=== PATIENT | male | born 1935 | race Caucasian/White ===

== ENCOUNTER 2023-12-08 10:00 | Outpatient (CLI) | payer MEDICARE, BC, SELFPAY | END 2023-12-08 10:01 | disposition home or self-care (01) | LOC: AMB 12-11 01:34 | PROVIDERS: PCP Student in an Organized Health Care Education/Training Program; Visit Provider Emergency Medicine | DX: S89.91XA Unspecified injury of right lower leg, initial encounter (principal); W01.0XXA Fall on same level from slipping, tripping and stumbling without subsequent striking against object, initial encounter; Y92.000 Kitchen of unspecified non-institutional (private) residence as the place of occurrence of the external cause | CPT/HCPCS: A0425; A0427 ==

== ENCOUNTER 2023-12-08 10:47 | Inpatient (IN) | payer MEDICARE, BC, SELFPAY ==
[2023-12-08] VITALS (47 sets, daily range): BP systolic 95–162; BP diastolic 35–82; PULSE 68–81; RESP 14–18; TEMP 36.4–37.2; O2SAT 89–99; BMI 23.6
--- NOTE | 2023-12-08 10:57 | XR_ITS ---
Patient: [facility] Facility:?[facility] Patient ID:?[id number] Site Patient ID:?[id number]. Site :?[id number] Study:?XRay-Hip Right 2 VIEWS AND PELVIS-12/08/2023 11:40:05 AM Ordering Physician:CLINTON Final Report: INDICATION: Fall. TECHNIQUE: AP view the pelvis and 2 views of the right hip. COMPARISON: None available. IMPRESSION : There is an acute transcervical right femoral neck fracture with moderate impaction. No dislocation. No evidence of pelvic fracture. Partially visualized left hip intramedullary sarah. 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 The visualized soft tissues are unremarkable. Dictated by Deepa Alvarez MD @ 12/08/2023 12:29:03 PM Signed by:?Deepa Alvarez MD @12/08/2023 12:29:03 PM (Electronic Signature)
--- NOTE | 2023-12-08 10:58 | CT_ITS ---
Patient: CORONA Mathur [facility] Facility:?[facility] Patient ID:?[id number] Site Patient ID:?[id number]. Site :?[id number] Study:?CT-Head WITHOUT-12/08/2023 11:29:59 AM Ordering Physician:CLINTON Final Report: INDICATION: Fall. COMPARISON: 08/02/2021. TECHNIQUE: Noncontrast CT head. FINDINGS: Mild generalized volume loss. 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 No acute intracranial hemorrhage, acute infarct, mass-effect, or fracture. No midline shift. No abnormal ventricular dilatation. Normal calvarium and skull base. Visualized paranasal sinuses and mastoid air cells are clear. Silastic banding left globe. Normal right orbit. IMPRESSION: 1. No acute intracranial abnormality. 2. No interval change Please note that all CT scans at this facility use dose modulation, iterative reconstruction, and/or weight-based dosing when appropriate to reduce radiation dose to as low as reasonably achievable. Dictated by Demetri Segura MD @ 12/08/2023 11:45:31 AM Signed by:?Demetri Segura MD @12/08/2023 11:45:31 AM (Electronic Signature)
--- NOTE | 2023-12-08 10:59 | ED.GENADULT ---
HPI - General Adult General Date Seen: 12/08/23 Chief complaint: Fall/Minor Trauma Stated complaint: fall Time Seen by Provider: 12/08/23 10:52 History of Present Illness HPI narrative: This is a pleasant 88-year-old gentleman brought to the ER this morning by EMS from his home. History is obtained from paramedics initially. They report that he was going to the bathroom last night when he slipped and fell in the bathroom. He landed hard on his right hip and has not been able to get up since then. He has been on the floor for approximately 13 hours. They say that he had a phone in his hand and had dialed 911 but then not push the ?send? button. Apparently his rubber in came to check on him this morning when he did not come to a previously scheduled event. His rev rim found him on the floor of the bathroom and called EMS for him. EMS administered fentanyl 50 mcg IV for severe right hip pain. He is complaining of right hip pain but no other injury. They do not notice any obvious deformity or rotation or foreshortening. EMS reports that he is generally healthy other than high cholesterol. He takes baby aspirin but no other anticoagulant Patient says he just tripped and fell last night was going to the bathroom. He does not recall any palpitations, chest pain, or fainting. He was having a lot of pain in his right hip so was laying on his left hip overnight. He was not able to get himself off the floor. He says he pulled a phone down off the counter by its cord. He knows that his last year and he still able to claim her on his taxes this year. He was planning to file is [place] today. He has no other complaints aside from pain in his right hip and femur . no numbness in his right leg. He does think that he hit his head against the bathtub when he fell, but does not have a headache. he is apologetic about having urine soaked jeans. he was not able to get off the floor to use the toilet. Related Data Home Medications Medication Instructions Recorded Confirmed OTC PROSTATE SUPPLEMENT 12/08/23 aspirin 325 mg tablet 325 mg PO HS 12/08/23 12/08/23 calcium carbonate 500 mg calcium 500 mg PO DAILY 12/08/23 12/08/23 (1,250 mg) tablet cholecalciferol (vitamin D3) 50 50 mcg PO DAILY 12/08/23 12/08/23 mcg (2,000 unit) capsule (Vitamin D3) dorzolamide 22.3 mg-timolol 6.8 1 drp ophthalmic (eye) BID 12/08/23 12/08/23 mg/mL eye drops nitroglycerin 0.4 mg sublingual 0.4 mg sublingual Q5-15M PRN 12/08/23 12/08/23 tablet omega 8-pfi-vmh-fish oil 1,000 mg 1 cap PO DAILY 12/08/23 12/08/23 (120 mg-180 mg) capsule (Fish Oil) simvastatin 20 mg tablet 20 mg PO HS 12/08/23 12/08/23 Allergies Allergy/AdvReac Type Severity Reaction Status Date / Time No Known Drug Allergies Allergy Verified 12/08/23 11:12 Exam Narrative: Exam Narrative: Constitutional: Appears well-developed and well-nourished. Alert. Conversant. Non toxic. Initially his clothes, in particular his pants and left lower sugar, are wet, he was removed from the wet clothes, dried off, and placed under warm blankets for comfort. HENT: Head: Atraumatic. Nose: Nose normal. Mouth/Throat: Oral mucosa is clear and moist. no trismus. Pharynx normal. Tonsils symmetric. No tonsillar enlargement, erythema, or exudate. Eyes: Conjunctivae normal. EOM normal. Pupils equal, round, and reactive to light. No scleral icterus. Neck: Normal range of motion. Neck supple. No tracheal deviation present. Cardiovascular: Normal rate, regular rhythm. No gallop. No friction rub. No murmur heard. Symmetric DP artery pulses Pulmonary/Chest: Effort normal. No stridor. No respiratory distress. No wheezes. No rales. No rhonchi . No tenderness. Abdominal: Soft. Bowel sounds normal. No distension. No mass. No tenderness. No rebound. No guarding. Musculoskeletal: RUE: Normal range of motion. No tenderness. No deformity LUE: Normal range of motion. No tenderness. No deformity RLE: Range of motion in the right hip the knee limited by pain. There is no obvious rotation or deformity of the right hip. Tender over the right hip and right proximal femur. No palpable hematoma. No crepitus. Intact toe wiggling and sensation in the right foot. LLE: Normal range of motion. No edema. No tenderness. No deformity Neurological: Alert and oriented to person, place, and time. Normal strength. CN II-VII intact. No sensory deficit. GCS eye subscore is 4. GCS verbal subscore is 5. GCS motor subscore is 6. Normal coordination Skin: Skin is warm and dry. No rash noted. No pallor. Normal capillary refill. Psychiatric: Normal mood. Normal affect. Const: Vital Signs, click to edit/add: Vital Signs - 24 hr 12/08/23 11:06 12/08/23 11:38 12/08/23 11:40 Temperature 98.1 F Pulse Rate 80 Pulse Rate [Pulse Oximeter] 77 Respiratory Rate 17 Blood Pressure 162/81 H Blood Pressure [Le ft Upper Arm] 144/75 H Pulse Oximetry 93 92 93 Oxygen Delivery Me thod Room Air 12/08/23 11:45 12/08/23 12:00 12/08/23 12:02 Temperature Pulse Rate 75 79 77 Pulse Rate [Pulse Oximeter] Respiratory Rate Blood Pressure 130/82 Blood Pressure [Le ft Upper Arm] Pulse Oximetry 95 93 95 Oxygen Delivery Me thod Course Course ED Course: recheck- d/w Orthopedics, SINDY, Sue. She reviewed the case with the surgeon, Dr. Whiteside. After some debate it was determined that they will take the patient to the OR for operative fixation this afternoon. Anticipate roughly 3:00 p.m., and about 2 hours per Discussed with hospitalist, Dr. Whiteside. She will admit for postoperative management. Subsequently discussed with the patient and his son. They both verbalized understanding and agreement with the plan to go for operative fixation for this femoral neck fracture. Vital Signs Vital signs: Initial Vital Signs Temperature 98.1 F 12/08/23 11:06 Temperature Source Temporal Artery Scan 12/08/23 11:06 Pulse Rate 77 12/08/23 11:06 Respiratory Rate 17 12/08/23 11:06 Blood Pressure 144/75 H 12/08/23 11:06 Blood Pressure Mean 98 12/08/23 11:06 Pulse Oximetry 93 12/08/23 11:06 Oxygen Delivery Method Room Air 12/08/23 11:06 Vital Signs Temperature 98.1 F 12/08/23 11:06 Pulse Rate 77 12/08/23 11:06 Respiratory Rate 17 12/08/23 11:06 Blood Pressure 144/75 H 12/08/23 11:06 Pulse Oximetry 93 12/08/23 11:06 Oxygen Delivery Method Room Air 12/08/23 11:06 Temperature 98.1 F 12/08/23 11:06 Pulse Rate 77 12/08/23 12:02 Respiratory Rate 17 12/08/23 11:06 Blood Pressure 130/82 12/08/23 12:02 Pulse Oximetry 95 12/08/23 12:02 Oxygen Delivery Method Room Air 12/08/23 11:06 Medications Administered Medications: Generic Name Dose Route Start Last Admin Trade Name Freq PRN Reason Stop Dose Admin Hydromorphone HCl 0.5 mg 12/08/23 10:57 12/08/23 14:03 Hydromorphone 0.5 Mg/0.5 Ml Inj IVP 0.5 mg Q1H PRN Administration Pain Lactated Ringer's 1,000 mls @ 125 mls/hr 12/08/23 12:55 12/08/23 14:02 Lactated Ringers 1000 Ml IV 125 mls/hr .Q8H SASHA Administration Discontinued Medications Generic Name Dose Route Start Last Admin Trade Name Freq PRN Reason Stop Dose Admin Sodium Chloride 250 mls @ 250 mls/hr 12/08/23 10:57 12/08/23 14:38 0.9 % Sodium Chloride 250 Ml IV 12/08/23 11:56 Infused .Q1H ONE Infusion Medical Decision Making MDM Narrative Medical decision making narrative: Very pleasant, independent, 88-year-old gentleman brought to the ER today by EMS. He experienced a mechanical trip and fall in the bathroom last night and landed on his right hip. There is no historical evidence to suggest that this was a syncopal event, cardiac arrhythmia, ACS, seizure, or stroke. Screening EKG does show a first-degree AV block and a right bundle-branch block but no clear ischemia. He is not having any chest pain to suggest ACS. He did spend about 13 hours on the floor is bathroom, being unable to get up. This raises concern for possible rhabdomyolysis. There is a small area of redness on the skin of his left hip (he was laying on his left side because it hurts less), but no skin breakdown. No ulcer. Concern is for possible rhabdomyolysis. CK is only mildly elevated at 770. IV fluids initiated here in the ER. He has been urinating overnight up, as evidence by incontinence since he was not able to get up to the toilet. Kidney function is normal. Initial IV saline bolus will be followed by lactated Ringer's maintenance fluid Head CT is negative for any signs of intracranial injury. He is not having any neck pain. He is not anticoagulated No evidence for any chest or rib pain or tenderness. No abdominal tenderness. His only area of pain would be his right hip and thigh. X-rays confirm a right femoral neck fracture. Fortunately he is neurovascularly intact in his right leg. He was having significant pain from this fracture, requiring serial doses of IV Dilaudid for pain control. Additional plan for analgesia was to place a right fascia iliac local anesthetic block. Unfortunately this was delayed due to the arrival of another critically ill patient. The patient was taken to the OR before we could perform the block. Lab Data Labs: Lab Results 12/08/23 Range/Units 11:13 WBC 12.73 H (4.50-11.00) K/uL RBC 5.30 (4.30-5.90) m/uL Hgb 16.9 (13.5-17.5) gm/dL Hct 49.6 (37.0-53.0) % MCV 94 (80-100) fL MCH 32 (26-34) pg MCHC 34 (32-36) gm/dL RDW Coeff of Jani 12.3 (11.5-15.5) % Plt Count 145 (140-440) K/uL Neut % (Auto) 89.3 H (42.0-72.0) % Lymph % (Auto) 3.9 L (20-44) % [place] % (Auto) 6.0 (0.0-11.0) % Eos % (Auto) 0.4 (0.0-7.0) % Baso % (Auto) 0.2 (0.0-3.0) % Neut # (Auto) 11.40 H (1.7-7.0) K/uL Lymph # (Auto) 0.50 L (0.90-2.90) K/uL [place] # (Auto) 0.80 (0.00-0.90) K/UL Eos # (Auto) 0.10 (0.00-0.50) K/uL Baso # (Auto) 0.00 (0.00-0.30) K/uL Abs Immat Gran (auto) 0.00 (0.00-0.30) K/uL Imm/Tot Granulo (auto) 0.2 % Sodium 138 (135-149) mmol/L Potassium 3.8 (3.6-5.1) mmol/L Chloride 105 (96-114) mmol/L Carbon Dioxide 26 (20-32) mmol/L Anion Gap 7 (7-15) mEq/L BUN 19 (7-30) mg/dL Creatinine 0.7 (0.5-1.5) mg/dL Estimated Creat Clear 51.06 Estimated GFR 89 ml/min Glucose 120 H (60-115) mg/dL Lactate 1.4 (0.5-1.9) mmol/L Calcium 10.3 (8.4-10.6) mg/dL Total Creatine Kinase 761 H (54-186) U/L ECG Data Attestation: I personally reviewed and interpreted this ECG as follows: Interpretation: Normal sinus rhythm rate 78. First-degree AV block. DE 312 QRS axis right bundle-branch block. Normal QRS axis. ST segment/T wave: No ST segment elevation or depression. Artifact obscures the baseline. QTc: 471 Discharge Plan Discharge Clinical Impression: Closed fracture of neck of right femur Patient Disposition: Admitted As Observation
[2023-12-08 11:21] LABS: Lactate* 1.4 mmol/L (0.5-1.9)
[2023-12-08] MEDS: HYDROmorphone 0.5 mg/0.5 ml inj IVP ×3 (11:23→14:03)
[2023-12-08 11:24] LABS: Basophils Percent Auto 0.2 % (0.0-3.0); Eosinophils Percent Auto 0.4 % (0.0-7.0); Hematocrit 49.6 % (37.0-53.0); Hemoglobin* 16.9 gm/dL (13.5-17.5); Immature Granulocytes Pct Auto 0.2 %; Lymphocytes Percent Auto 3.9 % (20-44); Mean Corpuscular HGB Conc 34 gm/dL (32-36); Mean Corpuscular Hemoglobin 32 pg (26-34); Mean Corpuscular Volume 94 fL (80-100); Neutrophils Percent Auto 89.3 % (42.0-72.0); Platelet Count* 145 K/uL (140-440); RDW Coefficient of Variation % 12.3 % (11.5-15.5); White Blood Count* 12.73 K/uL (4.50-11.00)
[2023-12-08 11:28] LABS: Slide Review Reflex No
[2023-12-08 11:37] LABS: Chloride* 105 mmol/L (96-114); Potassium* 3.8 mmol/L (3.6-5.1); Sodium* 138 mmol/L (135-149)
[2023-12-08 11:39] LABS: Creatinine* 0.7 mg/dL (0.5-1.5); Est. Creatinine Clearance* 51.06; Estimated Glomerular Filt Rate 89 ml/min
[2023-12-08 11:40] LABS: Anion Gap 7 mEq/L (7-15); Blood Urea Nitrogen* 19 mg/dL (7-30); Calcium* 10.3 mg/dL (8.4-10.6); Carbon Dioxide* 26 mmol/L (20-32); Creatine Kinase* 761 U/L (54-186); Glucose* 120 mg/dL (60-115)
[2023-12-08] MEDS: 0.9 % SODIUM CHLORIDE 250 ml 250 ML IV (11:45)
[2023-12-08] MEDS: LACTATED RINGERS 1000 ML 1,000 ML 125 ML IV ×2 (14:02→17:24)
[2023-12-08 14:36] LABS: Appearance Urine Clear (Clear); Bilirubin Urine Negative (Negative); Blood Urine Trace-intact (Negative); Color Urine Yellow (Yellow); Glucose Urine Trace (Negative); Ketones Urine Trace (Negative); Leukocyte Esterase Urine Negative (Negative); Nitrite Urine Negative (Negative); Protein Urine 2+ (Negative); Urobilinogen Urine 0.2 (0.2-1.0); pH Urine 7.5 (5.0-8.5)
[2023-12-08 14:57] LABS: Bacteria Urine Few; RBC Urine 0-2 (0-2); WBC Urine 0-2 (0-5)
--- NOTE | 2023-12-08 15:14 | PM.ORCN ---
History of Present Illness HPI Time Seen by Provider: 14:40 Date Seen: 12/08/23 Consult date: 12/08/23 Chief complaint: Right hip pain Narrative: Shaan is a pleasant 88-year-old male who sustained a right hip femoral neck fracture sometime last night. He states that injury occurred after he tripped and fell after getting up to go to the bathroom. After falling, developed right hip and leg pain and was unable to ambulate. He was down for approximately 13 hours before help arrived. He was subsequently brought to the emergency department this morning by EMS from his home. X-rays obtained confirmed displaced right hip femoral neck fracture. He denies any other injuries. Currently, pain is adequately controlled. Prior to the injury, patient states that he lived alone at home. His approximately 1 year ago. He does not use any assistive devices for walking but reportedly has a cane and/or walker at home. He has a history of left intertrochanteric femur fracture after ground level fall just over 2 years ago, which was treated with a intramedullary hip screw. He also reports prior history of DVT. PFSH PFSH Social History Smoking Status: Never smoker Do you use any of these nicotine containing products: None How often do you have a drink containing alcohol: never How often do you have six or more drinks on one occasion: Never AUDIT-C Alcohol total score: 0 Non-prescribed substance use: denies use Meds Home Medications and Allergies Home Medications Medication Instructions Recorded Confirmed Type OTC PROSTATE SUPPLEMENT 12/08/23 History aspirin 325 mg tablet 325 mg PO HS 12/08/23 12/08/23 History calcium carbonate 500 mg calcium 500 mg PO DAILY 12/08/23 12/08/23 History (1,250 mg) tablet cholecalciferol (vitamin D3) 50 50 mcg PO DAILY 12/08/23 12/08/23 History mcg (2,000 unit) capsule (Vitamin D3) dorzolamide 22.3 mg-timolol 6.8 1 drp ophthalmic (eye) BID 12/08/23 12/08/23 History mg/mL eye drops nitroglycerin 0.4 mg sublingual 0.4 mg sublingual Q5-15M PRN 12/08/23 12/08/23 History tablet omega 0-bea-hwj-fish oil 1,000 mg 1 cap PO DAILY 12/08/23 12/08/23 History (120 mg-180 mg) capsule (Fish Oil) simvastatin 20 mg tablet 20 mg PO HS 12/08/23 12/08/23 History Allergies Allergy/AdvReac Type Severity Reaction Status Date / Time No Known Drug Allergies Allergy Verified 12/08/23 11:12 Ortho Exam Narrative Exam Narrative: Musculoskeletal: Right leg was playing in a shortened and externally rotated position. Any attempted movement of the right lower extremity reproduce patient's hip pain. Sensation was intact to light touch throughout the dorsal plantar aspects of the foot. EHL, tibialis anterior, gastrocnemius/soleus were intact. Foot was warm and well perfused with intact DP and PT pulses. Const Vital Signs, click to edit/add: Vital Signs - 24 hr 12/08/23 11:06 12/08/23 11:38 12/08/23 11:40 Temperature 98.1 F Pulse Rate 80 Pulse Rate [Pulse Oximeter] 77 Respiratory Rate 17 Blood Pressure 162/81 H Blood Pressure [Left Upper Arm] 144/75 H Pulse Oximetry 93 92 93 Oxygen Delivery Method Room Air 12/08/23 11:45 12/08/23 12:00 12/08/23 12:02 Temperature Pulse Rate 75 79 77 Pulse Rate [Pulse Oximeter] Respiratory Rate Blood Pressure 130/82 Blood Pressure [Left Upper Arm] Pulse Oximetry 95 93 95 Oxygen Delivery Method Common normals: oriented x3 and alert Neuro Common normals: oriented x3 Sensorium/orientation: alert Results Labs Labs: Laboratory Results - last 48 hr 12/08/23 12/08/23 11:13 13:55 WBC 12.73 H RBC 5.30 Hgb 16.9 Hct 49.6 MCV 94 MCH 32 MCHC 34 RDW Coeff of Jani 12.3 Plt Count 145 Neut % (Auto) 89.3 H Lymph % (Auto) 3.9 L [place] % (Auto) 6.0 Eos % (Auto) 0.4 Baso % (Auto) 0.2 Neut # (Auto) 11.40 H Lymph # (Auto) 0.50 L [place] # (Auto) 0.80 Eos # (Auto) 0.10 Baso # (Auto) 0.00 Abs Immat Gran (auto) 0.00 Imm/Tot Granulo (auto) 0.2 Sodium 138 Potassium 3.8 Chloride 105 Carbon Dioxide 26 Anion Gap 7 BUN 19 Creatinine 0.7 Estimated Creat Clear 51.06 Estimated GFR 89 Glucose 120 H Lactate 1.4 Calcium 10.3 Total Creatine Kinase 761 H Urine Color Yellow Urine Appearance Clear Urine pH 7.5 Ur Specific [place] 1.020 Urine Protein 2+ A Urine Glucose (UA) Trace A Urine Ketones Trace A Urine Blood Trace-intact A Urine Nitrite Negative Urine Bilirubin Negative Urine Urobilinogen 0.2 Ur Leukocyte Esterase Negative Urine RBC 0-2 Urine WBC 0-2 Ur Squamous Epith Cells None Urine Bacteria Few A Assessment and Plan Assessment and plan (1) Closed fracture of neck of right femur: Status: Acute (2) History of deep vein thrombosis: Status: Acute Plan Patient has a displaced right hip femoral neck fracture. Risks and benefits of operative treatment and alternatives to surgery were discussed with the patient and his son and daughter. Recommendation was subsequently made for surgical intervention consisting of right hip hemiarthroplasty to allow for early mobilization and advancement of weight-bearing, decreased pain, and to avoid complications associated with prolonged bedrest. Risks of surgery to include, but not limited to, infection, neurovascular injury, hip dislocation, deep vein thrombosis, pulmonary embolism, heart attack, stroke, and even were discussed with patient and his family. All of their questions were answered. After discussion, they were in agreement with plan to proceed with surgery. Patient has been medically optimized and cleared for the planned surgical procedure. He has been NPO since last night. He is to remain NPO in anticipation for surgery this afternoon.
--- NOTE | 2023-12-08 15:37 | P.ORPRC_ITS ---
Procedure Note Date of procedure: 12/08/23 Procedure: PREOPERATIVE DIAGNOSIS: 1. Closed, displaced, right hip femoral neck fracture POSTOPERATIVE DIAGNOSIS: 1. Closed, displaced, right hip femoral neck fracture PROCEDURE: 1. Right hip cemented bipolar hemiarthroplasty SURGEON: Rusty Whiteside MD. VESSEL SCRAPPER HELPER: Leigh Flores P.A.-C. orthodontic assistant was critical for this case to aid in patient positioning, tissue retraction, limb manipulation/positioning, and wound closure. ANESTHESIA: Spinal anesthetic IMPLANTS: DePuy [place] femoral stem size 5 with standard offset; 10 mm stem centralizer; DePuy 28mm +5 femoral head; DePuy bipolar femoral head with 28 mm inner diameter and 51 mm outer diameter FINDINGS: Displaced femoral neck fracture EBL: 150 mL COMPLICATIONS: None evident INDICATIONS: The patient is a pleasant 88-year-old male who sustained a right hip injury after a ground level fall. Upon admission to the emergency department, the patient was found to have a displaced right hip femoral neck fracture. Treatment options were discussed and recommendation was made for surgical intervention consisting of bipolar right hip hemiarthroplasty. Prior to surgery, the risks and benefits of treatment were discussed with patient, all questions answered, and informed consent was obtained. DESCRIPTION OF PROCEDURE: Prior to surgery the operative hip was marked. The patient was brought to the operating room and spinal anesthesia was administered. After induction of anesthesia was undertaken, tranexamic acid and 2g IV Ancef were administered. Patient was then rotated into the left lateral decubitus position. An axillary roll was placed and all bony prominences were well padded. A surgical time-out was performed confirming patient identity, surgical site, and surgical procedure. The right hip and lower extremity were prepped and draped in the appropriate sterile fashion. A posterior lateral incision was made centered over the posterior aspect of the greater trochanter. Incision was carried through subcutaneous tissues. The IT band and gluteus ana fascia were identified. IT band and gluteus ana fascia were then incised in line with the incision and Charnley retractor was placed. Gluteus medius was retracted anteriorly. Piriformis and short external rotators were identified. Piriformis was tagged with a #1 Ethibond stitch and was released off its bony insertion. The short external rotators were also released off the femur, and an L-shaped capsulotomy was performed. These tissues were also tagged with a #1 Ethibond stitch. Once the capsulotomy was completed, a femoral neck osteotomy was then performed approximately 1 cm proximal to the lesser trochanter. The femoral head was then removed with a corkscrew device and all bony fragments were removed from the acetabulum. Femoral head measured 51 mm in diameter. We then turned our attention back to the proximal femur. A [employer] cutter osteotome was used to enter the proximal femur. A canal finder was then used to identify the center of the canal. A lateralizing Reamer was used, and the canal was reamed up to the appropriate size. We then broached sequentially to a size 5 broach, and trialed with the 28 mm +5 inner diameter femoral head and 51 mm outer diameter head. Excellent stability with full range of motion, and good soft tissue tension was confirmed. The hip was then dislocated, and the trial components were removed. The distal cement restrictor was then placed. The canal was copiously irrigated and dried. Cement was then pressurized into the canal. A size 5 standard offset [place] stem was then inserted into the canal in the appropriate anteversion. We removed excess cement and allowed the cement time to cure. Once the cement had cured, we dried the trunnion and impacted the formal 28 mm +5 femoral head and 51 mm bipolar femoral head. The hip was then reduced, and we checked stability 1 more time. With these components in place, we had appropriate soft tissue tension, good leg length, and excellent stability. The hip was then irrigated with copious amounts of normal saline. The piriformis, external rotators were repaired through bone tunnels into the greater trochanter using #2 FiberWire sutures. The IT band was closed with #1 Ethibond [id number] interrupted sutures followed by running #2 Stratafix stitch. Subcutaneous tissues were closed with 2-0 Vicryl inverted interrupted stitches followed by a running 2-0 Stratafix and 4-0 Stratafix stitches. Exofin surgical glue was then applied to the surgical incision followed by a black stressing. A large Saravanan bandage was placed from the foot to the thigh and an abduction pillow was placed between the patient's legs. Patient was then rotated into the supine position and awoken from anesthesia. Patient was then transferred to the recovery room in stable condition. PLAN: 1. Patient will be admitted to the hospitalist service for postoperative medical management. 2. Weight bearing: Weightbearing as tolerated 3. Posterior hip precautions to operative hip. Abduction pillow to remain in place while patient is in bed. 4. Postoperative antibiotics: Ancef x2 doses postoperatively per protocol 5. Pain control: Oral and IV pain medications. 6. PT/OT consults for ambulation assistance/mobility education 7. DVT prophylaxis: Continue mechanical SCDs while in the hospital. -Xarelto 10 mg p.o. daily for 35 days 8. Follow up in Orthopedic Clinic in 1-2 weeks for wound check. -Follow-up with Dr. Whiteside in Orthopedic Clinic in 6 weeks.
[2023-12-08] MEDS: CEFAZOLIN 2 GM INJ IVP (16:12)
[2023-12-08] MEDS: TRANEXAMIC ACID 100 MG/ML INJ 1000 MG IV (16:26)
--- NOTE | 2023-12-08 16:37 | SUR.OPER ---
PATIENT/FAMILY QUESTIONS ANSWERED SATISFACTORILY PREOPERATIVELY. PATIENT BROUGHT TO OR #2 PER CART. Patient positioned supine on OR #2 BED THEN MOVED INTO LEFT LATERAL POSITION FOR THE PROCEDURE BY Tripp. The perioperative team supported arms bilaterally on arm boards. Final approval of positioning by surgeon.
--- NOTE | 2023-12-08 16:45 | XR_ITS ---
Patient: CORONA Mathur [facility] Facility:?[facility] Patient ID:?[id number] Site Patient ID:?[id number]. Site :?[id number] Study:?XRay-Hip Right 2 VIEW POST OP-12/08/2023 7:26:15 PM Ordering Physician:GAVIN Final Report: INDICATION: Postop. TECHNIQUE: AP pelvis and lateral right hip. FINDINGS: New right hip hemiarthroplasty. Components appear well seated. Expected adjacent postop soft tissue air. Left hip ORIF changes. Dictated by Eh Elena MD @ 12/11/2023 8:27:38 AM Signed by:?Eh Elena MD @12/11/2023 8:27:38 AM (Electronic Signature)
--- NOTE | 2023-12-08 18:50 | P.ANES_ITS ---
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
--- NOTE | 2023-12-08 18:50 | W.ANESCHARGE ---
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
--- NOTE | 2023-12-08 19:13 | SUR.PHASEI ---
PRIOR TO KAVYA/LFCN BLOCKS, TIME OUT PREFORMED AT 19:07.
--- NOTE | 2023-12-08 19:28 | W.PM.NB ---
Nerve Block Nerve Block Time Seen by Provider: 19:20 Date Seen: 12/08/23 Type of block requested by surgeon for post-operative analgesia: KAVYA/LFCN Side: right Time out performed: Yes Verification of patient name: Yes Verification of date of : Yes Site marking: site marked Name of person performing procedure: hermilo Continuous monitoring Was continuous monitoring of O2 sat, B/P, phototypesetting equipment monitor, recorded every 15 minutes?: Yes Procedure Checklist: sterile prep and needles Ultrasound guided. Images saved: Yes Medications given in 5ml increments after negative aspiration: Ropivicaine %: 0.5 mL: 25 Needle gauge: 20 Decadron (mg): 10 Precedex (mcg): 25 Patient tolerated procedure well: Yes Block Charges Block Charge (with Pro Fee): Other Periph Nerve Block Use of Ultrasound Machine for Block: Yes- US Guidance/pain block
--- NOTE | 2023-12-08 20:36 | PM.IMHP1 ---
Hospitalist- H&P: HPI History of Present Illness Date Seen: 12/08/23 Chief complaint: Right hip pain Narrative: Shaan Vega is a 88 year old male who presented to ED from home for evaluation of fall. The patient had fall in his apartment yesterday after tripping on his feet. He denied LOC. He was unable to call for help. He was found today by member of his orthodoxy. He had complaints of right hip pain. He was brought to ED where Xray of right femur showed right femoral neck fracture. CT head no acute findings. WBC 12.7, CK 761. Orthopaedic Surgery was consulted and he was found to have Closed, displaced, right hip femoral neck fracture. He underwent Right hip cemented bipolar hemiarthroplasty under spinal anesthesia. EBL 150cc. He currently denies chest pain, sob, nausea, vomiting. Has not eaten yet. Post surgical pain is controlled. He is accompanied by his son and daughter. Code status confirmed with Daughter and patient DNR/DNi. Review of Systems Status of ROS: Reports: 10 or more systems reviewed and unremarkable except as noted in History and below PFSH PFS Surgical History (Updated 12/09/23 @ 10:26 by Dixie Whiteside MD) S/P hip hemiarthroplasty ?Z96.649 - Presence of unspecified artificial hip joint (ICD-10) Social History Smoking Status: Never smoker Do you use any of these nicotine containing products: None How often do you have a drink containing alcohol: never How often do you have six or more drinks on one occasion: Never AUDIT-C Alcohol total score: 0 Non-prescribed substance use: denies use Meds Home Medications and Allergies Home Medications Medication Instructions Recorded Confirmed Type OTC PROSTATE SUPPLEMENT 12/08/23 History aspirin 325 mg tablet 325 mg PO HS 12/08/23 12/08/23 History calcium carbonate 500 mg calcium 500 mg PO DAILY 12/08/23 12/08/23 History (1,250 mg) tablet cholecalciferol (vitamin D3) 50 50 mcg PO DAILY 12/08/23 12/08/23 History mcg (2,000 unit) capsule (Vitamin D3) dorzolamide 22.3 mg-timolol 6.8 1 drp ophthalmic (eye) BID 12/08/23 12/08/23 History mg/mL eye drops nitroglycerin 0.4 mg sublingual 0.4 mg sublingual Q5-15M PRN 12/08/23 12/08/23 History tablet omega 9-knt-loq-fish oil 1,000 mg 1 cap PO DAILY 12/08/23 12/08/23 History (120 mg-180 mg) capsule (Fish Oil) simvastatin 20 mg tablet 20 mg PO HS 12/08/23 12/08/23 History Allergies Allergy/AdvReac Type Severity Reaction Status Date / Time No Known Drug Allergies Allergy Verified 12/08/23 11:12 Exam Narrative: Exam Narrative: Gen: no acute dist ress HEENT: NCAT E KELSEY mmm Neck: Supp le CV: RRR normal s1 s2 Lungs: CTAB Abd: Soft,nt, nd N euro: Alert, orien rosa to month not y ear,wiggle toes Ps ych: appropriate a ffect MSK: age candace ropriate muscle ma ss Skin; Warm, dry no rash on face Const: Vital Signs, click to edit/add: Vital Signs - 24 hr 12/08/23 11:06 12/08/23 11:38 12/08/23 11:40 Temperature 98.1 F Pulse Rate 80 Pulse Rate [Pulse Oximeter] 77 Respiratory Rate 17 Blood Pressure 162/81 H Blood Pressure [Le ft Upper Arm] 144/75 H Pulse Oximetry 93 92 93 Oxygen Delivery Me thod Room Air Oxygen Flow Rate 12/08/23 11:45 12/08/23 12:00 12/08/23 12:02 Temperature Pulse Rate 75 79 77 Pulse Rate [Pulse Oximeter] Respiratory Rate Blood Pressure 130/82 Blood Pressure [Le ft Upper Arm] Pulse Oximetry 95 93 95 Oxygen Delivery Me thod Oxygen Flow Rate 12/08/23 12:03 12/08/23 12:15 12/08/23 12:30 Temperature Pulse Rate 78 77 75 Pulse Rate [Pulse Oximeter] Respiratory Rate Blood Pressure Blood Pressure [Le ft Upper Arm] Pulse Oximetry 95 91 91 Oxygen Delivery Me thod Oxygen Flow Rate 12/08/23 12:32 12/08/23 12:45 12/08/23 13:00 Temperature Pulse Rate 76 77 78 Pulse Rate [Pulse Oximeter] Respiratory Rate Blood Pressure 126/63 Blood Pressure [Le ft Upper Arm] Pulse Oximetry 93 94 94 Oxygen Delivery Me thod Oxygen Flow Rate 12/08/23 13:02 12/08/23 13:15 12/08/23 13:30 Temperature Pulse Rate 79 77 77 Pulse Rate [Pulse Oximeter] Respiratory Rate Blood Pressure 137/75 Blood Pressure [Le ft Upper Arm] Pulse Oximetry 92 93 93 Oxygen Delivery Me thod Oxygen Flow Rate 12/08/23 13:32 12/08/23 13:45 12/08/23 14:00 Temperature Pulse Rate 77 78 78 Pulse Rate [Pulse Oximeter] Respiratory Rate Blood Pressure 138/63 Blood Pressure [Le ft Upper Arm] Pulse Oximetry 92 94 93 Oxygen Delivery Me thod Oxygen Flow Rate 12/08/23 14:02 12/08/23 14:15 12/08/23 14:30 Temperature Pulse Rate 79 77 77 Pulse Rate [Pulse Oximeter] Respiratory Rate Blood Pressure 127/65 Blood Pressure [Le ft Upper Arm] Pulse Oximetry 95 93 95 Oxygen Delivery Me thod Oxygen Flow Rate 12/08/23 14:32 12/08/23 14:45 12/08/23 15:00 Temperature Pulse Rate 79 80 79 Pulse Rate [Pulse Oximeter] Respiratory Rate Blood Pressure 131/35 L Blood Pressure [Le ft Upper Arm] Pulse Oximetry 95 96 92 Oxygen Delivery Me thod Oxygen Flow Rate 12/08/23 15:03 12/08/23 15:15 12/08/23 15:30 Temperature Pulse Rate 80 79 76 Pulse Rate [Pulse Oximeter] Respiratory Rate Blood Pressure 136/74 Blood Pressure [Le ft Upper Arm] Pulse Oximetry 92 92 91 Oxygen Delivery Me thod Oxygen Flow Rate 12/08/23 15:32 12/08/23 15:45 12/08/23 18:43 Temperature 98.9 F Pulse Rate 75 80 79 Pulse Rate [Pulse Oximeter] Respiratory Rate 16 Blood Pressure 131/53 L 127/61 Blood Pressure [Le ft Upper Arm] Pulse Oximetry 90 92 91 Oxygen Delivery Me thod Room Air Oxygen Flow Rate 12/08/23 18:50 12/08/23 18:55 12/08/23 19:00 Temperature 98.7 F Pulse Rate 77 76 78 Pulse Rate [Pulse Oximeter] Respiratory Rate 14 14 16 Blood Pressure 121/62 126/71 128/75 Blood Pressure [Le ft Upper Arm] Pulse Oximetry 96 98 99 Oxygen Delivery Me thod OxyMask OxyMask OxyMask Oxygen Flow Rate 10 10 10 12/08/23 19:05 12/08/23 19:10 12/08/23 19:15 Temperature 98.6 F Pulse Rate 80 81 78 Pulse Rate [Pulse Oximeter] Respiratory Rate 18 16 14 Blood Pressure 126/63 112/60 115/62 Blood Pressure [Le ft Upper Arm] Pulse Oximetry 99 96 95 Oxygen Delivery Me thod Blow By Room Air Room Air Oxygen Flow Rate 10 12/08/23 19:20 12/08/23 19:25 Temperature 98.6 F Pulse Rate 72 73 Pulse Rate [Pulse Oximeter] Respiratory Rate 16 16 Blood Pressure 122/57 L 118/57 L Blood Pressure [Le ft Upper Arm] Pulse Oximetry 95 96 Oxygen Delivery Me thod Room Air Room Air Oxygen Flow Rate Hospitalist - H&P: Result Labs Labs: Short CBC 12/08/23 Range/Units 11:13 WBC 12.73 H (4.50-11.00) K/uL Hgb 16.9 (13.5-17.5) gm/dL Hct 49.6 (37.0-53.0) % Plt Count 145 (140-440) K/uL BMP 12/08/23 11:13 Sodium 138 Potassium 3.8 Chloride 105 Carbon Dioxide 26 BUN 19 Creatinine 0.7 Glucose 120 H Calcium 10.3 Cardiac Enzymes 12/08/23 Range/Units 11:13 Total Creatine Kinase 761 H (54-186) U/L Urine 12/08/23 Range/Units 13:55 Urine Color Yellow (Yellow) Urine Appearance Clear (Clear) Urine pH 7.5 (5.0-8.5) Ur Specific [place] 1.020 (1.000-1.030) Urine Protein 2+ A (Negative) Urine Glucose (UA) Trace A (Negative) Assessment and Plan Assessment and plan (1) S/P hip hemiarthroplasty: Problem comment: -POD #1. Doing well. Agree with VTE prophylaxis: Xarelto 10mg (started 12/07). TCU planned. Hospital medicine team is happy to follow this patient thru transfer/acceptance to SNF. 12/07 [facility] Status: Acute Assessment and Plan: Pain control; diet; dvt ppx per Surgery team CBC and BMP in AM (2) Closed fracture of neck of right femur: Problem comment: 12/08/2023 Status: Acute (3) Elevated CK: Problem comment: improved. no concern on renal status. Status: Acute Assessment and Plan: Continue IVF, recheck Total CK (4) Hyperlipidemia: Problem comment: continue statin Status: Acute (5) Leukocytosis: Problem comment: resolved Status: Acute
[2023-12-08] MEDS: SIMVASTATIN 20 MG TABLET PO (20:50)
[2023-12-08] MEDS: ACETAMINOPHEN 325 MG TABLET 650 MG PO (20:50)
[2023-12-08] MEDS: SENNOSIDES 1 TAB TABLET 2 TAB PO (20:50)
[2023-12-08] MEDS: LACTATED RINGERS 1000 ML 1,000 ML 75 ML IV (20:51)
[2023-12-08] MEDS: CEFAZOLIN 1 GM in 0.9 % SODIUM CHLORIDE Mini-bag 100 ML IVPB (20:51)
[2023-12-09] VITALS (8 sets, daily range): BP systolic 112–144; BP diastolic 50–90; PULSE 70–84; RESP 18–20; TEMP 36.4–37.3; O2SAT 91–96
[2023-12-09] MEDS: OXYCODONE 5 MG TABLET PO ×3 (02:53→20:04)
[2023-12-09] MEDS: ACETAMINOPHEN 325 MG TABLET 650 MG PO ×4 (02:54→20:04)
[2023-12-09] MEDS: CEFAZOLIN 1 GM in 0.9 % SODIUM CHLORIDE Mini-bag 100 ML IVPB (05:20)
[2023-12-09 06:27] LABS: Hematocrit 40.2 % (37.0-53.0); Hemoglobin* 13.5 gm/dL (13.5-17.5); Mean Corpuscular HGB Conc 34 gm/dL (32-36); Mean Corpuscular Hemoglobin 32 pg (26-34); Mean Corpuscular Volume 95 fL (80-100); Platelet Count* 122 K/uL (140-440); Red Blood Count 4.23 m/uL (4.30-5.90); White Blood Count* 10.79 K/uL (4.50-11.00)
[2023-12-09 06:28] LABS: Slide Review Reflex No
--- NOTE | 2023-12-09 06:31 | PC.NURSE ---
Pt alert and oriented x3. Afebrile. Pt reports 6/10 pain in right hip, pain managed with ice pack, PRN and scheduled medications. Pt?s right hip dressing is CDI. Pt denies chest pain, SOB, and N/V. Pt is voiding, passing gas and?tolerating regular diet.?Pt got up to the side of the bed and stood during the night due to feeling ?stiff? and wanting to move his legs. Pt is up A2 with walker and gait belt but has not walked yet.?Pt slept throughout most of night.?
[2023-12-09 06:38] LABS: Albumin* 3.1 g/dL (3.3-5.0)
[2023-12-09 06:39] LABS: Chloride* 106 mmol/L (96-114); Potassium* 4.3 mmol/L (3.6-5.1); Sodium* 135 mmol/L (135-149)
[2023-12-09 06:41] LABS: Anion Gap 5 mEq/L (7-15); Bilirubin Total* 0.8 mg/dL (0.1-1.5); Carbon Dioxide* 24 mmol/L (20-32); Creatinine* 0.8 mg/dL (0.5-1.5); Est. Creatinine Clearance* 51.06; Estimated Glomerular Filt Rate 85 ml/min
[2023-12-09 06:42] LABS: Alanine Aminotransferase* 16 U/L (4-50); Alkaline Phosphatase* 71 U/L (40-150); Aspartate Amino Transferase* 40 U/L (12-35); Blood Urea Nitrogen* 20 mg/dL (7-30); Calcium* 9.2 mg/dL (8.4-10.6); Creatine Kinase* 584 U/L (54-186); Glucose* 130 mg/dL (60-115); Total Protein* 5.7 g/dL (6.0-8.3)
[2023-12-09] MEDS: RIVAROXABAN 10 MG TABLET PO (09:25)
[2023-12-09] MEDS: DORZOLAMIDE/TIMOLOL 2-0.5% OPHTH 1 DROP EYE-BOTH ×2 (09:25→20:06)
[2023-12-09] MEDS: CALCIUM CARBONATE 500 MG TABLET PO (09:26)
[2023-12-09] MEDS: SENNOSIDES 1 TAB TABLET 2 TAB PO ×2 (09:26→20:03)
--- NOTE | 2023-12-09 10:19 | PM.IMPN1 ---
Progress Note: A&P Assessment and plan (1) Closed fracture of neck of right femur: Status: Acute (2) S/P hip hemiarthroplasty: Problem details: -POD #1. Doing well. Agree with VTE prophylaxis: Xarelto 10mg (started 12/07). TCU planned. Hospital medicine team is happy to follow this patient thru transfer/acceptance to SNF. 3 [facility] Status: Acute (3) Elevated CK: Problem details: improved. no concern on renal status. Status: Acute (4) Hyperlipidemia: Problem details: continue statin Status: Acute (5) Leukocytosis: Problem details: resolved Status: Acute Subjective Date Seen: 12/09/23 Interval history: Daily Progress Note - Hospital Medicine Day #: 2 POD #: 1 Right hip cemented bipolar hemiarthroplasty SURGEON: Rusty Whiteside MD. ANESTHESIA: Spinal anesthetic EBL: 150 mL COMPLICATIONS: None evident CC: fell and broke hip. s/p hemiarthroplasty. OVERNIGHT UPDATES FROM STAFF & MED, LAB, IMAGING UPDATES Objective: alert, eating breakfast. Up with therapies. ortho PA bedside. Vitals: see above Lungs: Clear. Cardiac: S1S2. surgical dressing right hip, dry/intact. NVI. Disposition/Potential discharge - Likely to return to previous living situation. Today I spent 50minutes seeing the patient, reviewing Expanse and EPIC notes/diagnostics, discussing the care plan with our care time that includes social work, PT/OT, pharmacy, RT, care home and documenting my impressions and plan in the medical record. Exam Const: Vital Signs, click to edit/add: Vital Signs - 24 hr 12/08/23 11:06 12/08/23 11:38 12/08/23 11:40 Temperature 98.1 F Pulse Rate 80 Pulse Rate [Left P ulse Oximeter] Pulse Rate [Pulse Oximeter] 77 Respiratory Rate 17 Blood Pressure 162/81 H Blood Pressure [Le ft Upper Arm] 144/75 H Blood Pressure [Ri ght Arm] Pulse Oximetry 93 92 93 Oxygen Delivery Me thod Room Air Oxygen Flow Rate 12/08/23 11:45 12/08/23 12:00 12/08/23 12:02 Temperature Pulse Rate 75 79 77 Pulse Rate [Left P ulse Oximeter] Pulse Rate [Pulse Oximeter] Respiratory Rate Blood Pressure 130/82 Blood Pressure [Le ft Upper Arm] Blood Pressure [Ri ght Arm] Pulse Oximetry 95 93 95 Oxygen Delivery Me thod Oxygen Flow Rate 12/08/23 12:03 12/08/23 12:15 12/08/23 12:30 Temperature Pulse Rate 78 77 75 Pulse Rate [Left P ulse Oximeter] Pulse Rate [Pulse Oximeter] Respiratory Rate Blood Pressure Blood Pressure [Le ft Upper Arm] Blood Pressure [Ri ght Arm] Pulse Oximetry 95 91 91 Oxygen Delivery Me thod Oxygen Flow Rate 12/08/23 12:32 12/08/23 12:45 12/08/23 13:00 Temperature Pulse Rate 76 77 78 Pulse Rate [Left P ulse Oximeter] Pulse Rate [Pulse Oximeter] Respiratory Rate Blood Pressure 126/63 Blood Pressure [Le ft Upper Arm] Blood Pressure [Ri ght Arm] Pulse Oximetry 93 94 94 Oxygen Delivery Me thod Oxygen Flow Rate 12/08/23 13:02 12/08/23 13:15 12/08/23 13:30 Temperature Pulse Rate 79 77 77 Pulse Rate [Left P ulse Oximeter] Pulse Rate [Pulse Oximeter] Respiratory Rate Blood Pressure 137/75 Blood Pressure [Le ft Upper Arm] Blood Pressure [Ri ght Arm] Pulse Oximetry 92 93 93 Oxygen Delivery Me thod Oxygen Flow Rate 12/08/23 13:32 12/08/23 13:45 12/08/23 14:00 Temperature Pulse Rate 77 78 78 Pulse Rate [Left P ulse Oximeter] Pulse Rate [Pulse Oximeter] Respiratory Rate Blood Pressure 138/63 Blood Pressure [Le ft Upper Arm] Blood Pressure [Ri ght Arm] Pulse Oximetry 92 94 93 Oxygen Delivery Me thod Oxygen Flow Rate 12/08/23 14:02 12/08/23 14:15 12/08/23 14:30 Temperature Pulse Rate 79 77 77 Pulse Rate [Left P ulse Oximeter] Pulse Rate [Pulse Oximeter] Respiratory Rate Blood Pressure 127/65 Blood Pressure [Le ft Upper Arm] Blood Pressure [Ri ght Arm] Pulse Oximetry 95 93 95 Oxygen Delivery Me thod Oxygen Flow Rate 12/08/23 14:32 12/08/23 14:45 12/08/23 15:00 Temperature Pulse Rate 79 80 79 Pulse Rate [Left P ulse Oximeter] Pulse Rate [Pulse Oximeter] Respiratory Rate Blood Pressure 131/35 L Blood Pressure [Le ft Upper Arm] Blood Pressure [Ri ght Arm] Pulse Oximetry 95 96 92 Oxygen Delivery Me thod Oxygen Flow Rate 12/08/23 15:03 12/08/23 15:15 12/08/23 15:30 Temperature Pulse Rate 80 79 76 Pulse Rate [Left P ulse Oximeter] Pulse Rate [Pulse Oximeter] Respiratory Rate Blood Pressure 136/74 Blood Pressure [Le ft Upper Arm] Blood Pressure [Ri ght Arm] Pulse Oximetry 92 92 91 Oxygen Delivery Me thod Oxygen Flow Rate 12/08/23 15:32 12/08/23 15:45 12/08/23 18:43 Temperature 98.9 F Pulse Rate 75 80 79 Pulse Rate [Left P ulse Oximeter] Pulse Rate [Pulse Oximeter] Respiratory Rate 16 Blood Pressure 131/53 L 127/61 Blood Pressure [Le ft Upper Arm] Blood Pressure [Ri ght Arm] Pulse Oximetry 90 92 91 Oxygen Delivery Me thod Room Air Oxygen Flow Rate 12/08/23 18:50 12/08/23 18:55 12/08/23 19:00 Temperature 98.7 F Pulse Rate 77 76 78 Pulse Rate [Left P ulse Oximeter] Pulse Rate [Pulse Oximeter] Respiratory Rate 14 14 16 Blood Pressure 121/62 126/71 128/75 Blood Pressure [Le ft Upper Arm] Blood Pressure [Ri ght Arm] Pulse Oximetry 96 98 99 Oxygen Delivery Me thod OxyMask OxyMask OxyMask Oxygen Flow Rate 10 10 10 12/08/23 19:05 12/08/23 19:10 12/08/23 19:15 Temperature 98.6 F Pulse Rate 80 81 78 Pulse Rate [Left P ulse Oximeter] Pulse Rate [Pulse Oximeter] Respiratory Rate 18 16 14 Blood Pressure 126/63 112/60 115/62 Blood Pressure [Le ft Upper Arm] Blood Pressure [Ri ght Arm] Pulse Oximetry 99 96 95 Oxygen Delivery Me thod Blow By Room Air Room Air Oxygen Flow Rate 10 12/08/23 19:20 12/08/23 19:25 12/08/23 19:30 Temperature 98.6 F 97.9 F Pulse Rate 72 73 73 Pulse Rate [Left P ulse Oximeter] Pulse Rate [Pulse Oximeter] Respiratory Rate 16 16 14 Blood Pressure 122/57 L 118/57 L 120/61 Blood Pressure [Le ft Upper Arm] Blood Pressure [Ri ght Arm] Pulse Oximetry 95 96 94 Oxygen Delivery Me thod Room Air Room Air Nasal Cannula Oxygen Flow Rate 2 12/08/23 19:45 12/08/23 20:00 12/08/23 20:15 Temperature 97.9 F 98.7 F 97.6 F Pulse Rate 75 73 70 Pulse Rate [Left P ulse Oximeter] Pulse Rate [Pulse Oximeter] Respiratory Rate 14 16 16 Blood Pressure 121/61 117/60 118/62 Blood Pressure [Le ft Upper Arm] Blood Pressure [Ri ght Arm] Pulse Oximetry 95 95 95 Oxygen Delivery Me thod Nasal Cannula Nasal Cannula Nasal Cannula Oxygen Flow Rate 1 1 0.5 12/08/23 20:45 12/08/23 21:00 12/08/23 21:30 Temperature 97.8 F 98.4 F 98.1 F Pulse Rate 74 74 78 Pulse Rate [Left P ulse Oximeter] Pulse Rate [Pulse Oximeter] Respiratory Rate 16 18 16 Blood Pressure 120/59 L 134/61 104/56 L Blood Pressure [Le ft Upper Arm] Blood Pressure [Ri ght Arm] Pulse Oximetry 92 89 92 Oxygen Delivery Me thod Nasal Cannula Room Air Nasal Cannula Oxygen Flow Rate 0.5 12/08/23 22:00 12/08/23 23:00 12/08/23 23:00 Temperature 98.0 F 98.0 F Pulse Rate 79 68 Pulse Rate [Left P ulse Oximeter] Pulse Rate [Pulse Oximeter] Respiratory Rate 16 14 Blood Pressure 103/45 L 95/52 L Blood Pressure [Le ft Upper Arm] Blood Pressure [Ri ght Arm] Pulse Oximetry 93 95 95 Oxygen Delivery Me thod Room Air Nasal Cannula Oxygen Flow Rate 0.5 12/09/23 00:00 12/09/23 03:25 12/09/23 07:32 Temperature 98.4 F 97.6 F 99.1 F Pulse Rate 70 Pulse Rate [Left P ulse Oximeter] 77 73 Pulse Rate [Pulse Oximeter] Respiratory Rate 18 18 18 Blood Pressure 117/53 L Blood Pressure [Le ft Upper Arm] Blood Pressure [Ri ght Arm] 124/59 L 144/90 H Pulse Oximetry 94 92 94 Oxygen Delivery Me thod Nasal Cannula Nasal Cannula Room Air Oxygen Flow Rate 0.5 12/09/23 07:32 Temperature Pulse Rate Pulse Rate [Left P ulse Oximeter] Pulse Rate [Pulse Oximeter] Respiratory Rate Blood Pressure Blood Pressure [Le ft Upper Arm] Blood Pressure [Ri ght Arm] Pulse Oximetry 94 Oxygen Delivery Me thod Oxygen Flow Rate Labs Labs: Laboratory Results - last 24 hr 12/08/23 12/08/23 12/09/23 11:13 13:55 05:55 WBC 12.73 H 10.79 RBC 5.30 4.23 L Hgb 16.9 13.5 Hct 49.6 40.2 MCV 94 95 MCH 32 32 MCHC 34 34 RDW Coeff of Jani 12.3 Plt Count 145 122 L Neut % (Auto) 89.3 H Lymph % (Auto) 3.9 L [place] % (Auto) 6.0 Eos % (Auto) 0.4 Baso % (Auto) 0.2 Neut # (Auto) 11.40 H Lymph # (Auto) 0.50 L [place] # (Auto) 0.80 Eos # (Auto) 0.10 Baso # (Auto) 0.00 Abs Immat Gran (auto) 0.00 Imm/Tot Granulo (auto) 0.2 Sodium 138 135 Potassium 3.8 4.3 Chloride 105 106 Carbon Dioxide 26 24 Anion Gap 7 5 L BUN 19 20 Creatinine 0.7 0.8 Estimated Creat Clear 51.06 51.06 Estimated GFR 89 85 Glucose 120 H 130 H Lactate 1.4 Calcium 10.3 9.2 Total Bilirubin 0.8 AST 40 H ALT 16 Alkaline Phosphatase 71 Total Creatine Kinase 761 H 584 H Total Protein 5.7 L Albumin 3.1 L Urine Color Yellow Urine Appearance Clear Urine pH 7.5 Ur Specific [place] 1.020 Urine Protein 2+ A Urine Glucose (UA) Trace A Urine Ketones Trace A Urine Blood Trace-intact A Urine Nitrite Negative Urine Bilirubin Negative Urine Urobilinogen 0.2 Ur Leukocyte Esterase Negative Urine RBC 0-2 Urine WBC 0-2 Ur Squamous Epith Cells None Urine Bacteria Few A
--- NOTE | 2023-12-09 10:25 | P.ORPN_ITS ---
Subjective Subjective Time Seen by Provider: 10:25 Date Seen: 12/09/23 Principal diagnosis: Status post right hip hemiarthroplasty Interval history: Shaan is comfortable in the recliner this morning. He is talkative. Plan is for correction facility. Ortho Exam Narrative Exam Narrative: Alert and oriented x3. Patient is in no acute distress. Converses without labored breathing. Hearing is grossly intact. Ambulates with a walker. Examination of the right hip shows the dressing is in place. It was puckered at the top, this was fixed. It appears to be well adhered. There is no erythema or warmth or sign of infection. Tenderness to palpation about the hip area. Mild soft tissue edema. He is able to the dorsiflex and plantar flex both ankles. CMS intact bilateral lower extremities. Bilateral calves are soft and nontender. Const Vital Signs, click to edit/add: Vital Signs - 24 hr 12/08/23 11:06 12/08/23 11:38 12/08/23 11:40 Temperature 98.1 F Pulse Rate 80 Pulse Rate [Left Pulse Oximeter] Pulse Rate [Pulse Oximeter] 77 Respiratory Rate 17 Blood Pressure 162/81 H Blood Pressure [Left Upper Arm] 144/75 H Blood Pressure [Right Arm] Pulse Oximetry 93 92 93 Oxygen Delivery Method Room Air Oxygen Flow Rate 12/08/23 11:45 12/08/23 12:00 12/08/23 12:02 Temperature Pulse Rate 75 79 77 Pulse Rate [Left Pulse Oximeter] Pulse Rate [Pulse Oximeter] Respiratory Rate Blood Pressure 130/82 Blood Pressure [Left Upper Arm] Blood Pressure [Right Arm] Pulse Oximetry 95 93 95 Oxygen Delivery Method Oxygen Flow Rate 12/08/23 12:03 12/08/23 12:15 12/08/23 12:30 Temperature Pulse Rate 78 77 75 Pulse Rate [Left Pulse Oximeter] Pulse Rate [Pulse Oximeter] Respiratory Rate Blood Pressure Blood Pressure [Left Upper Arm] Blood Pressure [Right Arm] Pulse Oximetry 95 91 91 Oxygen Delivery Method Oxygen Flow Rate 12/08/23 12:32 12/08/23 12:45 12/08/23 13:00 Temperature Pulse Rate 76 77 78 Pulse Rate [Left Pulse Oximeter] Pulse Rate [Pulse Oximeter] Respiratory Rate Blood Pressure 126/63 Blood Pressure [Left Upper Arm] Blood Pressure [Right Arm] Pulse Oximetry 93 94 94 Oxygen Delivery Method Oxygen Flow Rate 12/08/23 13:02 12/08/23 13:15 12/08/23 13:30 Temperature Pulse Rate 79 77 77 Pulse Rate [Left Pulse Oximeter] Pulse Rate [Pulse Oximeter] Respiratory Rate Blood Pressure 137/75 Blood Pressure [Left Upper Arm] Blood Pressure [Right Arm] Pulse Oximetry 92 93 93 Oxygen Delivery Method Oxygen Flow Rate 12/08/23 13:32 12/08/23 13:45 12/08/23 14:00 Temperature Pulse Rate 77 78 78 Pulse Rate [Left Pulse Oximeter] Pulse Rate [Pulse Oximeter] Respiratory Rate Blood Pressure 138/63 Blood Pressure [Left Upper Arm] Blood Pressure [Right Arm] Pulse Oximetry 92 94 93 Oxygen Delivery Method Oxygen Flow Rate 12/08/23 14:02 12/08/23 14:15 12/08/23 14:30 Temperature Pulse Rate 79 77 77 Pulse Rate [Left Pulse Oximeter] Pulse Rate [Pulse Oximeter] Respiratory Rate Blood Pressure 127/65 Blood Pressure [Left Upper Arm] Blood Pressure [Right Arm] Pulse Oximetry 95 93 95 Oxygen Delivery Method Oxygen Flow Rate 12/08/23 14:32 12/08/23 14:45 12/08/23 15:00 Temperature Pulse Rate 79 80 79 Pulse Rate [Left Pulse Oximeter] Pulse Rate [Pulse Oximeter] Respiratory Rate Blood Pressure 131/35 L Blood Pressure [Left Upper Arm] Blood Pressure [Right Arm] Pulse Oximetry 95 96 92 Oxygen Delivery Method Oxygen Flow Rate 12/08/23 15:03 12/08/23 15:15 12/08/23 15:30 Temperature Pulse Rate 80 79 76 Pulse Rate [Left Pulse Oximeter] Pulse Rate [Pulse Oximeter] Respiratory Rate Blood Pressure 136/74 Blood Pressure [Left Upper Arm] Blood Pressure [Right Arm] Pulse Oximetry 92 92 91 Oxygen Delivery Method Oxygen Flow Rate 12/08/23 15:32 12/08/23 15:45 12/08/23 18:43 Temperature 98.9 F Pulse Rate 75 80 79 Pulse Rate [Left Pulse Oximeter] Pulse Rate [Pulse Oximeter] Respiratory Rate 16 Blood Pressure 131/53 L 127/61 Blood Pressure [Left Upper Arm] Blood Pressure [Right Arm] Pulse Oximetry 90 92 91 Oxygen Delivery Method Room Air Oxygen Flow Rate 12/08/23 18:50 12/08/23 18:55 12/08/23 19:00 Temperature 98.7 F Pulse Rate 77 76 78 Pulse Rate [Left Pulse Oximeter] Pulse Rate [Pulse Oximeter] Respiratory Rate 14 14 16 Blood Pressure 121/62 126/71 128/75 Blood Pressure [Left Upper Arm] Blood Pressure [Right Arm] Pulse Oximetry 96 98 99 Oxygen Delivery Method OxyMask OxyMask OxyMask Oxygen Flow Rate 10 10 10 12/08/23 19:05 12/08/23 19:10 12/08/23 19:15 Temperature 98.6 F Pulse Rate 80 81 78 Pulse Rate [Left Pulse Oximeter] Pulse Rate [Pulse Oximeter] Respiratory Rate 18 16 14 Blood Pressure 126/63 112/60 115/62 Blood Pressure [Left Upper Arm] Blood Pressure [Right Arm] Pulse Oximetry 99 96 95 Oxygen Delivery Method Blow By Room Air Room Air Oxygen Flow Rate 10 12/08/23 19:20 12/08/23 19:25 12/08/23 19:30 Temperature 98.6 F 97.9 F Pulse Rate 72 73 73 Pulse Rate [Left Pulse Oximeter] Pulse Rate [Pulse Oximeter] Respiratory Rate 16 16 14 Blood Pressure 122/57 L 118/57 L 120/61 Blood Pressure [Left Upper Arm] Blood Pressure [Right Arm] Pulse Oximetry 95 96 94 Oxygen Delivery Method Room Air Room Air Nasal Cannula Oxygen Flow Rate 2 12/08/23 19:45 12/08/23 20:00 12/08/23 20:15 Temperature 97.9 F 98.7 F 97.6 F Pulse Rate 75 73 70 Pulse Rate [Left Pulse Oximeter] Pulse Rate [Pulse Oximeter] Respiratory Rate 14 16 16 Blood Pressure 121/61 117/60 118/62 Blood Pressure [Left Upper Arm] Blood Pressure [Right Arm] Pulse Oximetry 95 95 95 Oxygen Delivery Method Nasal Cannula Nasal Cannula Nasal Cannula Oxygen Flow Rate 1 1 0.5 12/08/23 20:45 12/08/23 21:00 12/08/23 21:30 Temperature 97.8 F 98.4 F 98.1 F Pulse Rate 74 74 78 Pulse Rate [Left Pulse Oximeter] Pulse Rate [Pulse Oximeter] Respiratory Rate 16 18 16 Blood Pressure 120/59 L 134/61 104/56 L Blood Pressure [Left Upper Arm] Blood Pressure [Right Arm] Pulse Oximetry 92 89 92 Oxygen Delivery Method Nasal Cannula Room Air Nasal Cannula Oxygen Flow Rate 0.5 12/08/23 22:00 12/08/23 23:00 12/08/23 23:00 Temperature 98.0 F 98.0 F Pulse Rate 79 68 Pulse Rate [Left Pulse Oximeter] Pulse Rate [Pulse Oximeter] Respiratory Rate 16 14 Blood Pressure 103/45 L 95/52 L Blood Pressure [Left Upper Arm] Blood Pressure [Right Arm] Pulse Oximetry 93 95 95 Oxygen Delivery Method Room Air Nasal Cannula Oxygen Flow Rate 0.5 12/09/23 00:00 12/09/23 03:25 12/09/23 07:32 Temperature 98.4 F 97.6 F 99.1 F Pulse Rate 70 Pulse Rate [Left Pulse Oximeter] 77 73 Pulse Rate [Pulse Oximeter] Respiratory Rate 18 18 18 Blood Pressure 117/53 L Blood Pressure [Left Upper Arm] Blood Pressure [Right Arm] 124/59 L 144/90 H Pulse Oximetry 94 92 94 Oxygen Delivery Method Nasal Cannula Nasal Cannula Room Air Oxygen Flow Rate 0.5 12/09/23 07:32 Temperature Pulse Rate Pulse Rate [Left Pulse Oximeter] Pulse Rate [Pulse Oximeter] Respiratory Rate Blood Pressure Blood Pressure [Left Upper Arm] Blood Pressure [Right Arm] Pulse Oximetry 94 Oxygen Delivery Method Oxygen Flow Rate Assessment and Plan Assessment and plan (1) Closed fracture of neck of right femur: Problem details: 12/08/2023 Status: Acute Assessment and Plan: Plan for discharge is to correction facility once he meets discharge criteria. DVT prophylaxis includes Xarelto 10 mg daily for total of 35 days,frequent ambulation, double inch 6 Saravanan bandages bilateral lower extremities while in the hospital. Remove dressing 1 week. Observe wound and phone Orthopedics with any questions or concerns Use Ice on operative hip unrestricted. Return to clinic in 1-2 weeks with PA for a wound check Return to clinic in 6 weeks with surgeon Minimize narcotic use. Wean off and discontinue soon as possible. Weightbear as tolerated right lower extremity. OT and PT while in hospital. Attend OT and PT daily at correction facility.
--- NOTE | 2023-12-09 18:08 | PC.NURSE ---
Pt alert and oriented. Pt had complaints of pain ranging from 0-2; see EMAR for intervention. VSS. Pt assist of 2 with gait belt and walker. Pt to have hip abductor pillow in place when in bed per Sue PA. Pt?s dressing is dry and intact. Pt awaiting placement for discharge.?
[2023-12-09] MEDS: SIMVASTATIN 20 MG TABLET PO (20:03)
[2023-12-09] MEDS: SODIUM CHLORIDE 0.9 % (FLUSH) 10 ML SYRINGE 5 ML IVF (20:05)
[2023-12-10] VITALS (7 sets, daily range): BP systolic 124–149; BP diastolic 60–67; PULSE 70–96; RESP 16–20; TEMP 36.5–37.3; O2SAT 91–97
[2023-12-10] MEDS: OXYCODONE 5 MG TABLET PO ×4 (02:24→22:23)
[2023-12-10] MEDS: ACETAMINOPHEN 325 MG TABLET 650 MG PO ×4 (02:25→20:54)
[2023-12-10 06:08] LABS: HCO3 VBG 27 mmol/L (21-28); PCO2 VBG 40 mmHG (40-50); PO2 VBG 35.3 mmHG (25-47); pH VBG 7.439 (7.32-7.43)
[2023-12-10 06:23] LABS: Hematocrit 41.5 % (37.0-53.0); Hemoglobin* 13.8 gm/dL (13.5-17.5); Mean Corpuscular HGB Conc 33 gm/dL (32-36); Mean Corpuscular Hemoglobin 32 pg (26-34); Mean Corpuscular Volume 96 fL (80-100); Platelet Count* 140 K/uL (140-440); Red Blood Count 4.33 m/uL (4.30-5.90); White Blood Count* 9.07 K/uL (4.50-11.00)
[2023-12-10 06:24] LABS: Slide Review Reflex No
--- NOTE | 2023-12-10 06:38 | PC.NURSE ---
End of shift [id number]: Pain to right hip well managed with current regimen. Patient pre-medicated with pain medication prior to ambulation and patient was able to transfer with min assist x 2 and ambulated with SBA with walker and gait belt to the bathroom, patient tolerated well. Dressing to hip clean, dry and intact. Patient request to remove dann wraps from BLE at 0625. Abductor pillow utilized throughout the night.
[2023-12-10 07:14] LABS: Chloride* 108 mmol/L (96-114)
[2023-12-10 07:15] LABS: Potassium* 3.6 mmol/L (3.6-5.1); Sodium* 136 mmol/L (135-149)
[2023-12-10 07:17] LABS: Creatinine* 0.8 mg/dL (0.5-1.5); Est. Creatinine Clearance* 51.06; Estimated Glomerular Filt Rate 85 ml/min
[2023-12-10 07:18] LABS: Anion Gap 3 mEq/L (7-15); Blood Urea Nitrogen* 24 mg/dL (7-30); Calcium* 9.3 mg/dL (8.4-10.6); Carbon Dioxide* 25 mmol/L (20-32); Glucose* 104 mg/dL (60-115); Magnesium* 2.1 mg/dL (1.5-2.6)
[2023-12-10] MEDS: RIVAROXABAN 10 MG TABLET PO (08:14)
[2023-12-10] MEDS: SENNOSIDES 1 TAB TABLET 2 TAB PO ×2 (08:14→20:54)
[2023-12-10] MEDS: DORZOLAMIDE/TIMOLOL 2-0.5% OPHTH 1 DROP EYE-BOTH ×3 (08:14→20:55)
[2023-12-10] MEDS: CALCIUM CARBONATE 500 MG TABLET PO (08:14)
[2023-12-10] MEDS: SODIUM CHLORIDE 0.9 % (FLUSH) 10 ML SYRINGE 5 ML IVF ×2 (08:15→20:55)
--- NOTE | 2023-12-10 12:11 | PC.SOCIAL ---
Addendum entered by BONITA Marino 12/10/23 16:39: Discharge planning: Pt was accepted to [facility] for short-term rehab on Sunday. He will start out in the shared room and then they can transition him to the private room when it is available(most likely Monday 12/11). shafting worker confirmed this plan with pt, his son and daughter. shafting worker also informed the charge nurse on duty. [facility] would like the pt to arrive tomorrow between 12pm-2pm. Pt will need non-emergent EMS transport set-up. shafting worker informed charge nurse on duty of transportation being through EMS. shafting worker will discuss the transportation cost with pt's son and daughter in the morning. Social work to follow-up as needed. Addendum entered by BONITA Marino 12/10/23 15:00: Discharge planning: shafting worker met with pt's son and daughter. Updated them on the status of [facility] still reviewing the pt's referral. Explained to pt's son and daughter that [facility] may have a shared room available tomorrow(Sunday) for pt and that pt has been medically ready to discharge as of today. Pt's son and daughter explained that they think pt would prefer a private room. shafting worker explained that if pt is accepted to [facility] on Sunday for a shared room, but they do not want to accept the shared room they would have to file a discharge appeal at that point. Pt's son and daughter understood. Social work to follow-up as needed. Addendum entered by BONITA Marino 12/10/23 14:03: Discharge planning: [facility] is still reviewing pt's referral and may be able to accept on Sunday, but this worker has not gotten a confirmation yet. shafting worker met with the pt in his room. shafting worker updated the pt to let him know [facility] was reviewing his referral. Pt is hopeful that he will be able to go to [facility] for rehab. Social work to follow-up as needed. Original Note: Discharge planning: shafting worker spoke to pt's son, Richard, to discuss discharge planning. Discussed how pt is being recommended by PT/OT for TCU. Pt's son stated that his father would really like to stay in [place] for short-term rehab. shafting worker explained to pt's son that [facility] is the only senior care in [place]. Pt's son stated that his father would be fine with going to [facility] and that it's actually close to the pt's home. shafting worker checked with Digna at [facility] and they will have male TCU openings on Sunday. shafting worker sent the pt's referral to [facility] to review. Pt's son was also interested in speaking to the physical therapist on duty, so this worker asked physical therapy to call the pt's son, as well. Social work to follow-up as needed.
--- NOTE | 2023-12-10 15:22 | P.IMPN_ITS ---
Progress Note: A&P Assessment and plan (1) S/P hip hemiarthroplasty: Problem details: -POD #2. Doing well. Agree with VTE prophylaxis: Xarelto 10mg (started 12/07). TCU planned. Hospital medicine team is happy to follow this patient thru transfer/acceptance to SNF. [facility]: [facility] (2) Closed fracture of neck of right femur: Problem details: 12/08/2023 Status: Acute (3) Elevated CK: Problem details: improved. no concern on renal status. Status: Acute (4) Hyperlipidemia: Problem details: continue statin Status: Acute (5) Leukocytosis: Problem details: resolved Status: Acute (6) Elevated TSH: Problem details: 12. ordered free t4 Status: Acute Subjective Date Seen: 12/10/23 Interval history: Daily Progress Note - Hospital Medicine Day #: 3 POD #: 2 Right hip cemented bipolar hemiarthroplasty SURGEON: Rusty Whiteside MD. ANESTHESIA: Spinal anesthetic EBL: 150 mL COMPLICATIONS: None evident CC: fell and broke hip. s/p hemiarthroplasty. OVERNIGHT UPDATES FROM STAFF & MED, LAB, IMAGING UPDATES continues to be alert, working with PT/OT. pain well managed. Objective: alert, eating breakfast. Vitals: see above Lungs: Clear. Cardiac: S1S2. surgical dressing right hip, dry/intact. NVI. Disposition/Potential discharge - Likely to return to previous living situation. Today I spent 50minutes seeing the patient, reviewing Expanse and EPIC notes/diagnostics, discussing the care plan with our care time that includes social work, PT/OT, pharmacy, RT, care home and documenting my impressions and plan in the medical record. Exam Const: Vital Signs, click to edit/add: Vital Signs - 24 hr 12/09/23 15:43 12/09/23 15:44 12/09/23 19:00 Temperature 98.8 F 99.1 F Pulse Rate [Left P ulse Oximeter] 76 Pulse Rate [Right Dorsalis Pedis] 84 Respiratory Rate 18 20 Blood Pressure [Ri ght Arm] 120/59 L 121/59 L Pulse Oximetry 96 96 92 Oxygen Delivery Me thod Room Air Room Air 12/09/23 23:00 12/09/23 23:00 12/09/23 23:00 Temperature 98.8 F Pulse Rate [Left P ulse Oximeter] 76 76 Pulse Rate [Right Dorsalis Pedis] Respiratory Rate 18 18 Blood Pressure [Ri ght Arm] 116/50 L Pulse Oximetry 92 91 Oxygen Delivery Me thod Room Air 12/10/23 03:00 12/10/23 07:00 12/10/23 07:00 Temperature 98.3 F 99.2 F Pulse Rate [Left P ulse Oximeter] 96 70 Pulse Rate [Right Dorsalis Pedis] Respiratory Rate 16 20 Blood Pressure [Ri ght Arm] 132/62 131/64 Pulse Oximetry 91 94 94 Oxygen Delivery Wv thod Room Air Room Air Labs Labs: Laboratory Results - last 24 hr 12/10/23 05:55 WBC 9.07 RBC 4.33 Hgb 13.8 Hct 41.5 MCV 96 MCH 32 MCHC 33 Plt Count 140 VBG pH 7.439 H VBG pCO2 40 VBG pO2 35.3 VBG HCO3 27 Sodium 136 Potassium 3.6 Chloride 108 Carbon Dioxide 25 Anion Gap 3 L BUN 24 Creatinine 0.8 Estimated Creat Clear 51.06 Estimated GFR 85 Glucose 104 Calcium 9.3 Magnesium 2.1 TSH 12.200 H
[2023-12-10 16:41] LABS: Free T4 Free Thyroxine* 0.93 ng/dL (0.70-1.85)
[2023-12-10 17:15] LABS: Creatine Kinase* 354 U/L (54-186)
--- NOTE | 2023-12-10 19:15 | PC.NURSE ---
End of shift [id number] - Pt alert and oriented x 4, but appeared to be slightly confused and displayed wandering speech. Pt up with PT/OT and up to chair with 1 assist and walker/gait belt. Pt reported pain at rest as 2/10, pain reported to increase with movement. Pain managed throughout shift with medication per MAR. Pt continent of bowel and bladder, tolerating RA, regular diet, fluids. Family at bedside during shift. Pt appears to be proactive about getting up out of bed and ambulating, using call light appropriately to transfer from bed to chair. Pt appears to be resting comfortably at end of shift.
[2023-12-10] MEDS: SAW PALMETTO 450 MG PO (20:53)
[2023-12-10] MEDS: SIMVASTATIN 20 MG TABLET PO (20:54)
[2023-12-11 02:36] VITALS: BP 135/65; PULSE 73; RESP 16; TEMP 36.8; O2SAT 93
[2023-12-11 02:38] VITALS: TEMP 36.8
[2023-12-11] MEDS: ACETAMINOPHEN 325 MG TABLET 650 MG PO ×2 (02:38→09:14)
--- NOTE | 2023-12-11 03:48 | PC.NURSE ---
Pt rested well this night. Had large BM in evening. Pain controlled. Pt up A1 and slow to move but pleasant and cooperative. VS unremarkable.
[2023-12-11 07:00] VITALS: BP 140/64; PULSE 75; RESP 20; TEMP 37.1; O2SAT 95
[2023-12-11] MEDS: CALCIUM CARBONATE 500 MG TABLET PO (09:14)
[2023-12-11] MEDS: SENNOSIDES 1 TAB TABLET 2 TAB PO (09:15)
[2023-12-11] MEDS: RIVAROXABAN 10 MG TABLET PO (09:15)
[2023-12-11] MEDS: SAW PALMETTO 450 MG PO (09:15)
[2023-12-11] MEDS: SODIUM CHLORIDE 0.9 % (FLUSH) 10 ML SYRINGE 5 ML IVF (09:15)
[2023-12-11] MEDS: DORZOLAMIDE/TIMOLOL 2-0.5% OPHTH 1 DROP EYE-BOTH (09:15)
[2023-12-11] MEDS: OXYCODONE 5 MG TABLET PO (09:17)
--- NOTE | 2023-12-11 10:22 | PC.SOCIAL ---
Addendum entered by BONITA Marino 12/11/23 11:56: Discharge planning: encyclopedia research worker secure emailed D/C orders to Digna at [facility] this morning. encyclopedia research worker also met with pt again to discuss his discharge to [facility] today. Explained to pt that he would be starting out in a shared room and then [facility] will be able to transfer him to a private room(most likely on Sunday). Pt was okay with this plan and thankful that he will transition to his own private room eventually. Social work to follow-up as needed. Original Note: Discharge planning: Provided pt with The Important Message from Medicare form and discussed his discharge to [facility] later today. Pt will be taking non-emergent EMS transport and this worker spoke to pt's daughter, Quita, about the cost and they are okay with paying. encyclopedia research worker explained it would cost around $100.00 to go from the hospital to [facility]. Pre-admission screening was completed, [id number] and was sent to Digna at [facility]. Social work to follow-up as needed.
--- NOTE | 2023-12-11 12:51 | PC.NURSE ---
Discharge - Pt alert, oriented x 4, cooperative. Pt speech observed to wander, but pt is very pleasant. Up to chair and bathroom with 1 assist, walker/gait belt, continent of bowel and bladder. Pt tolerating RA, regular diet, fluids. Pt reports pain in R hip/leg as 2/10 when not moving. Pain is rated as 7-8/10 when getting in and out of bed, moving in and out of chair. Pain managed with medication in MAR with pt verbalizing increased comfort. Dressing CDI, pedal pulse present. Pt discharged to [facility] via non-emergent EMS at approximately 1245.
--- NOTE | 2023-12-11 16:16 | P.DS_ITS ---
DS: Providers Provider Date Seen: 12/11/23 Date of admission: 12/08/23 20:44 Primary care physician: DAJUAN VALLE DO Admitting Clinician: Maxwell Riojas MD Consults: 12/08/23 18:17 Consult to Occupational Therapy [CONS] Routine Comment: Reason(s) for OT Consult:: Evaluate and Treat Any Restrictions?:: See Comment Comment: evaluate and treat Consult to Physical Therapy [CONS] Routine Comment: Reason(s) for PT Consult:: Evaluate and Treat Any Restrictions?:: Wt Bearing as Tolerated Comment: s/p right hip hemiarthroplasty Posterior Hip Precautions. Consult to Supervisor Process Testing [CONS] Routine Comment: Reason for Consult:: Discharge Planning Needs Attending Physician on discharge: Dixie Whiteside MD [facility] Date of Discharge: 12/11/23 DS: Diagnosis Discharge Diagnosis (1) Closed fracture of neck of right femur: Status: Acute Problem details: 12/08/2023 (2) S/P hip hemiarthroplasty: Status: Acute Problem details: -POD #3. Doing well. Agree with VTE prophylaxis: Xarelto 10mg (started 12/07). TCU planned. Hospital medicine team is happy to follow this patient thru transfer/acceptance to SNF. 12/07 [facility] (3) Elevated CK: Status: Acute Problem details: improved. no concern on renal status. DS: Summary Hospital Course Hospital Course: FINAL DIAGNOSIS/FOLLOW UP ISSUES: Right femur fracture, status post bipolar hemiarthroplasty. Admitted to rehab on 12/10. Did exceptionally well. On Xarelto and then aspirin for DVT prophylaxis BRIEF HOSPITAL COURSE: Patient was admitted for 4 days. Synopsis of acute inpatient issues are outlined above. Chronic medical conditions with notable findings outlined above. Shaan did excellent with surgery. There were no perioperative complications. No delirium. He was ready for discharge and transferred to [facility] rehab where he will continue to do well. DISCHARGE MEDICATIONS: See Reconciled list - no chronic med changes Specific instructions to the patient and follow-up are outlined below. REVIEW OF SYSTEMS No new chest pain or dyspnea Pain controlled No voiding difficulties Tolerating diet challenge PHYSICAL EXAM: CONSTITUTIONAL: Alert, oriented. Making jokes. VITAL SIGNS: see record. HEENT: Normocephalic, atraumatic. PERRL, EOMI, conjunctivae pink, no scleral icterus. Ears and nose externally normal. Pharynx normal. NECK: No JVD. No carotid bruit, no thyromegaly, no adenopathy. CHEST: Clear to auscultation bilaterally. HEART: S1 and S2 normal. Edema ABDOMEN: Soft, nontender. Normal bowel sounds. MUSCULOSKELETAL: No gross joint deformity or swelling. NEURO: Cranial nerves intact. Grossly intact. No asymmetric findings. SKIN: No rashes, petechiae, concerning changes PSYCHIATRIC: Mood euthymic. DISPOSITION: [facility] Time spent on discharge 37 minutes. Status at Discharge Functional status at discharge: uses cane/walker Overall status at discharge: patient is progressing back to baseline Time Spent with Patient Time attestation: Total time spent providing and/or coordinating discharge services: Time spent: Greater than 30 minutes Exam Const: Vital Signs, click to edit/add: Vital Signs - 24 hr 12/10/23 19:49 12/10/23 20:54 12/10/23 22:27 Temperature 98.4 F 98.4 F 98.6 F Pulse Rate [Left P ulse Oximeter] 83 78 Pulse Rate [Right Dorsalis Pedis] Respiratory Rate 16 16 Blood Pressure [Ri ght Arm] 149/67 H 124/60 Pulse Oximetry 97 95 Oxygen Delivery Me thod Room Air Room Air 12/10/23 22:58 12/10/23 22:58 12/11/23 02:36 Temperature 98.3 F Pulse Rate [Left P ulse Oximeter] 78 73 Pulse Rate [Right Dorsalis Pedis] 84 Respiratory Rate 16 16 Blood Pressure [Ri ght Arm] 135/65 Pulse Oximetry 95 93 Oxygen Delivery Me thod Room Air 12/11/23 02:38 12/11/23 07:00 12/11/23 07:00 Temperature 98.3 F 98.7 F Pulse Rate [Left P ulse Oximeter] 75 Pulse Rate [Right Dorsalis Pedis] Respiratory Rate 20 Blood Pressure [Ri ght Arm] 140/64 H Pulse Oximetry 95 95 Oxygen Delivery Me thod Room Air DS: Data Data Completed and Pending Labs on day of discharge: Labs from last 24 hours 12/10/23 05:55 Total Creatine Kinase 354 H Free T4 0.93 Discharge Plan Discharge Disposition: [facility] Date of Admission: 12/08/23 20:44 Attending Provider on Discharge: Dixie Whiteside Primary Care Provider: DAJUAN VALLE Discharge Medications: New Xarelto 10 mg Tablet 10 mg PO DAILY 35 Days Qty: 35 0RF oxycodone 5 mg Tablet 2.5 - 10 mg PO Q4-6H MDD 6 tabs per day PRN (Reason: Pain) Qty: 42 0RF Rx Instructions: Minimize use. Wean off and discontinue as soon as possible. sennosides [Senna Lax] 8.6 mg Tablet 8.6 - 17.2 mg PO BID PRN (Reason: constipation) Qty: 30 0RF Rx Instructions: Hold if experiencing loose stools. acetaminophen 325 mg Tablet 325 - 650 mg PO Q4-6H MDD 4,000 mg per day PRNQty: 100 0RF Continued simvastatin 20 mg tablet 20 mg PO HS dorzolamide-timolol 22.3-6.8 mg/mL drops 1 drp ophthalmic (eye) BID calcium carbonate 500 mg calcium (1,250 mg) tablet 500 mg PO DAILY cholecalciferol (vitamin D3) [Vitamin D3] 50 mcg (2,000 unit) capsule 50 mcg PO DAILY omega 3-dso-wji-fish oil [Fish Oil] 1,000 mg (120 mg-180 mg) capsule 1 cap PO DAILY nitroglycerin 0.4 mg tablet, sublingual 0.4 mg sublingual Q5-15M PRN Rx Instructions: do not exceed 3 doses per episode OTC PROSTATE SUPPLEMENT Discontinued aspirin 325 mg tablet 325 mg PO HS Discharge Orders: Discharge Order (Routine); Ordered 12/11/23 Ordered By: Dixie Whiteside Activity Level: Weight Bearing as Tolerated Discharge Diet: Regular Follow Up Appointments: [facility] [Outside] (Patient is being discharged to [facility]) Gelacio Burch MD [Referring] - Forms: [facility] Info Instructions Admit to: SNF Discharge Potential: Good Length of Stay: <30 days Can use facility standing orders?: Yes Code Status: DNR/DNI Rehab Potential: Good Therapy: Physical Therapy and Occupational Therapy Therapy Orders: Evaluate and Treat Oxygen: No Urinary Catheter: No Orders are good >30 days: Yes
== END 2023-12-11 12:45 | DRG 522 ==
LOC: ED 15:16 → OR 15:59 → MEDSURG 19:57
PROVIDERS: Family Medicine; Orthopaedic Surgery; Admitting Provider Hospitalist; Emergency Provider Emergency Medicine; PCP Student in an Organized Health Care Education/Training Program; Visit Provider Surgery
DX: S72.001A Fracture of unspecified part of neck of right femur, initial encounter for closed fracture (principal); M62.82 Rhabdomyolysis; Z86.718 Personal history of other venous thrombosis and embolism; E78.5 Hyperlipidemia, unspecified; Z96.641 Presence of right artificial hip joint; G89.18 Other acute postprocedural pain
CPT/HCPCS: 01210; 36415; 64450; 70450; 73501; 73502; 76942; 80048; 80053; 81001; 82550; 82803; 83605; 83735; 84439; 84443; 85025; 85027; 87086; 93005; 97110; 97116; 97161; 97165; 97530; 97535; 99100; 99140; 99285; A9270; C1776; J0665; J0690; J1100; J1170; J2250; J2371; J2405; J2704; J2795; J3010; J3490; J7050; J7120

== ENCOUNTER 2023-12-11 12:38 | Outpatient (CLI) | payer MEDICARE, BC, SELFPAY | END 2023-12-11 12:39 | disposition home or self-care (01) | LOC: AMB 12-20 03:05 | PROVIDERS: PCP Student in an Organized Health Care Education/Training Program; Visit Provider Family Medicine | DX: S72.001S Fracture of unspecified part of neck of right femur, sequela (principal) | CPT/HCPCS: A0425; A0428 ==

== ENCOUNTER 2024-08-12 10:45 | Outpatient (RCR) | payer MEDICARE, BC, SELFPAY | END 2024-08-13 16:31 | disposition home or self-care (01) | PROVIDERS: PCP Student in an Organized Health Care Education/Training Program; Visit Provider Student in an Organized Health Care Education/Training Program | DX: M25.561 Pain in right knee (principal); Z51.89 Encounter for other specified aftercare | CPT/HCPCS: 97110; 97162 ==

== ENCOUNTER 2025-06-27 16:16 | Emergency (ER) | payer MEDICARE, BC, SELFPAY ==
[2025-06-27 16:18] VITALS: BP 172/86; PULSE 97; RESP 18; TEMP 36.9; O2SAT 98; BMI 23.3
--- OUTSIDE RECORDS SUMMARY | 2025-06-27 16:19 | XMS_ITS | Clinical Summary ---
Author Organization [facility] Address [address] [place] [id number] Care Team Providers Care [employer] Name Role Phone Adriano Cerrato MD Unavailable Jorge Alberto Chang MD Unavailable Alivia Saab DO Primary Care Provider Allergies No known active allergies Medications omega-3 fatty acids-vitamin E (FISH OIL) 1,000 mg Cap Take 2 capsules by mouth once daily. 0 0 Active dorzolamide-augutso oloL (COSOPT) 2-0.5 % ophthalmic solutionIndicat ions:Gross hematuria Place 1 Drop into both eyes 2 times daily. 1 Active cholecalciferol (Vitamin D-3) 2,000 unit capsuleIndicati ons:History of osteopenia Take 1 Capsule (2,000 units) by mouth once daily. 0 2 Active nitroglycerin (NITROSTAT) 0.4 mg sublingual tabletIndicatio ns:Chest pressure PLACE ONE TABLET UNDER TONGUE NEEDED FOR CHEST PAIN EVERY 5 MINUTES 25 Tablet 2 Active psyllium powdIndications :Chronic diarrhea Mix 1 tsp in liquid then take by mouth once daily if needed for Constipation. 283 g 11 3 Active latanoprost (XALATAN) 0.005 % ophthalmic solution 1 Drop. 4 Active aspirin enteric coated (ECOTRIN) 81 mg enteric coated tabletIndicatio ns:History of cerebral infarction Take 1 Tablet (81 mg) by mouth once daily with a meal. 4 Active vit-min eye [id number] g-1mg (PreserVision AREDS 2 Plus) capsule Take 1 Capsule by mouth two times daily. 4 Active Saw [place] 160 mg capsule Take by mouth. 4 Active calcium carbonate (CALTRATE) 600 mg calcium (1,500 mg) tablet Take 1 Tablet (600 mg) by mouth two times daily with meals. 4 Active mometasone 0.1 % ointmentIndicat ions:Contact dermatitis and eczema Apply topically to affected area(s) once daily. 45 g 4 Active simvastatin 20 mg tabletIndicatio ns:Pure hypercholestero lemia,History of cerebral infarction Take 1 Tablet (20 mg) by mouth at bedtime. 90 Tablet 3 5 Active Active Problems Problem Noted Date Diagnosed Date Malignant neoplasm 03/24/2025 Overview (03/24/2025): AI Summary: As of 02/17/25: The patient has a history of prostate cancer, initially diagnosed on 11/10/2008, and underwent radiation therapy and TURP about 16 years ago. 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 Family history includes cancer in his father and brother, and his twin brother had bladder cancer and at age 76. 05/23/22: Alb 4.3 g/dL 12/18/23: WBC 5.8 thou/cu mm 12/18/23: Hgb 13.3 g/dL 12/18/23: K 3.9 mmol/L 12/18/23: Plt 258 thou/cu mm 05/23/22: AST 19 IU/L 12/09/23: ALT 16 U/L 05/23/22: Total Protein 6.4 g/dL 12/18/23: Ca 9.5 mg/dL 12/14/21: PSA 0.86 ng/mL 12/18/23: Cr 0.75 mg/dL 12/18/23: GFR 87 mL/min/1.73m2 Recent encounter dx: 01/25/24: Appointment - [facility] 12/14/21: Appointment - [facility] 09/02/21: Appointment - [facility] 12/05/20: Support OP Encounter - [facility] 11/22/20: Appointment - [facility] Recent notes: 03/18/24: Progress Notes - Medicare Wellness Visit by Alivia Saab DO ... [+] ? Primary malignant neoplasm of prostate (HC) C61 01/25/24: Progress Notes by Alivia Saab DO ... [-] ? Cancer Father ... [-] ? Cancer Brother 74 ... [-] twin chris has bladder CA, age 76 ... [+] Primary malignant neoplasm of prostate (HC) C61 12/18/22: Progress Notes by Alivia Saab DO ... [+] ? Prostate cancer (HC) 11/10/2008 ... [-] GI cancer 05/23/22: Progress Notes by Ariadna Johnson MD ... [+] ? Prostate cancer (HC) C61 12/14/21: Progress Notes - Medicare Wellness Visit by Gelacio Burch MD ... [+] He has a history of prostate cancer and has not had a PSA for about a year. ... 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 The patient also underwent primary EBRT and radiation approximately 16 years ago and developed radiation proctitis. Family history includes cancer in the patient's father and brother, with the brother's cancer onset at age 74, and the patient's twin brother had bladder cancer and at age 76. 05/23/22: Alb 4.3 g/dL 12/18/23: WBC 5.8 thou/cu mm 12/18/23: Hgb 13.3 g/dL 12/18/23: K 3.9 mmol/L 12/18/23: Plt 258 thou/cu mm 05/23/22: AST 19 IU/L 12/09/23: ALT 16 U/L 05/23/22: Total Protein 6.4 g/dL 12/18/23: Ca 9.5 mg/dL 12/14/21: PSA 0.86 ng/mL 12/18/23: Cr 0.75 mg/dL 12/18/23: GFR 87 mL/min/1.73m2 Recent encounter dx: 01/25/24: Appointment - [facility] 12/14/21: Appointment - [facility] 09/02/21: Appointment - [facility] 12/05/20: Support OP Encounter - [facility] 11/22/20: Appointment - [facility] Recent notes: 03/18/24: Progress Notes - Medicare Wellness Visit by Alivia Saab DO ... [+] ? Primary malignant neoplasm of prostate (HC) C61 01/25/24: Progress Notes by Alivia Saab DO ... [-] ? Cancer Father ... [-] ? Cancer Brother 74 ... [-] twin chris has bladder CA, age 76 ... [+] Primary malignant neoplasm of prostate (HC) C61 12/18/22: Progress Notes by Alivia Saab DO ... [+] ? Prostate cancer (HC) 11/10/2008 ... [-] GI cancer 05/23/22: Progress Notes by Ariadna Johnson MD ... [+] ? Prostate cancer (HC) C61 12/14/21: Progress Notes - Medicare Wellness Visit by Gelacio Burch MD ... [+] He has a history of prostate cancer and has not had a PSA for about a year. ... 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 Overview (03/06/2016): Colonoscopy 02/2016 radiation proctitis, no bleeding, no follow up Family history of diabetes mellitus 10/18/2012 Allergic rhinitis, cause unspecified 06/25/2012 Cerebral aneurysm, nonruptured 11/02/2011 Overview (11/02/2011): 5 mm Right MCA on MRA 07/2011 Needs annual MRA for f/u History of cerebral infarction 08/15/2011 Overview (08/15/2011): Multiple small left occipital strokes on MRI/MRA of brain and cervical vessels 07/2011 Diplopia 08/15/2011 Contact dermatitis and other eczema, due to unspecified cause 11/10/2008 Primary malignant neoplasm of prostate 9 Overview (12/18/2022): TURP 2004 - fragment out of more than 50 sampled, Radiation 11/04/12-01/01/13 for stage II(T1c, N0, M0) Zamzam 7(3+4) Unspecified hearing loss 12/04/2006 Inguinal hernia without ment ion of obstruction or gangrene, unilateral or unspecified, (not specified as recurrent) 12/04/2006 Overview (11/10/2008): Right side minimal sx's Resolved Problems Problem Noted Date Diagnosed Date Resolved Date PE (pulmonary thromboembolism) 01/18/2023 01/25/2024 Encounters Date Type Department Care Team Description 06/18/2025 Orders Only [facility] Scanner 1 scan: (1-Ord) [facility], BIOPSY BY SHAVE METHOD, 06/18/2025 from Last 3 Months Immunizations Immunization Administration Dates Next Due AMB INFLUENZA IIV3 (AGE 65+ YRS) PF (Flu Clinic Only) 07/03/2018,06/20/2017 Amb Influenza, Inact (High-d ose) (Flu Clinic Only) 06/29/2016,06/25/2014 Amb Influenza, Inactivated A IIV4 (Age 65+ Years) Preserv Free 06/24/2020 COVID-19 VACCINE COMIRNATY ( iPAYst-BIONTECH 30MCG/0.3ML) 12YO+ PFS 08/17/2022,12/28/2021,08/25/2021 COVID-19 VACCINE SPIKEVAX (M ODERNA 50MCG/0.5ML) 12YO+ PFS 06/23/2024,08/01/2023 COVID-19 vaccine (Pfizer-Bio NTech 30mcg/0.3mL) 12YO+ BIVALENT PF, MDV 08/17/2022 COVID-19 vaccine (Pfizer-Bio NTech 30mcg/0.3mL) 12YO+ TYE-SUCROSE PF, MDV 12/28/2021 COVID-19 vaccine (Pfizer-Bio NTech 30mcg/0.3mL) PF, MDV 08/25/2021,11/13/2020,10/23/2020 Hepatitis A (Adult) 07/12/1998,11/11/1997 Hepatitis B (Adult) 07/12/1998,12/14/1997,1997 Influenza Virus, Unspecified 07/13/2015 Influenza, High-dose Inactivated 08/01/2023,09/17 Influenza, IIV3 (Age >=3 years) 01/11/2009 Influenza, IIV4 06/20/2017 Influenza, Inactivated AIIV4 (Age 65+ Years) Preserv Free 08/01/2023,06/29/2022,06/22/2021 Influenza, Inactivated IIV3 (Age 65+ Years) Preserv Free 06/23/2024,10/20/2019 Pneumococcal Poly,23-Valent (Pneumovax) 01/12/20 09 Pneumococcal conj 13-Valent (Prevnar 13) 015 Td (Age >=7 Years) 11/11/1997 Td, Preservative Free (age >= 7 Years) 9 Tdap 02/12/2015 Tuberculin Skin Test, Unspecified 12/25/2023, Typhoid (injectable) 01/11/2009,01/12/2008 Family History Medical History Relation Name Comments Heart Disease Brother 1 Cancer Brother 2 twin bro has bl adder CA, age 76 Diabetes Brother 3 Other Brother 4 MS - at 71 Asthma Child Cancer Father GI cancer Diabetes Father d 74 yo Hypertension Mother d 78 yo heart Relation Name Status Comments Brother 1 Brother 2 Brother 3 Brother 4 Child Father Mother Social History Tobacco Use Types Packs/Day Years Used Date Smoking Tobacco: Former Cigarettes 0.5 5 0 09/17/1953 - 09/17/1958 Smokeless Tobacco: Never Tobacco Cessation:Counseling Given: Yes Alcohol Use Standard Drinks/Week Comments Yes 1.7 (1 standard drink = 0.6 oz p ure alcohol) occ beer or glass wine PHQ-2 Answer Date Recorded PHQ-2 TOTAL SCORE 0 03/24/2025 Social Connections Answer Date Recorded Do you often feel lonely or isolated from those around you? 0 03/24/2025 Financial Resource Strain Answer Date R ecorded Difficulty of Paying Living Expenses 3 03/24/2025 Difficulty of Paying Living Expenses Not on file 03/24/2025 Food Insecurity Answer Date Recorded Do you worry your food will run out before you are able to buy more? 1 03/24/2025 Transportation Needs Answer Date Record ed Does lack of transportation keep you from medica l appointments? 1 03/24/2025 Does lack of transportation keep you from work, meetings or getting things that you need? 1 03/24/2025 Housing Stability Answer Date Recorded What is your housing situation today? 1 03/24/2025 Utilities Answer Date Recorded Do you have trouble paying f or utilities (for example, heat, electricity, water, phone)? 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 Not on file Not on file Not on file Obstetrics History Last Filed Vital Signs Vital Sign Reading Time Taken Comments Blood Pressure 129/67 03/24/2025 7:56 AM CDT Pulse 74 03/24/2025 7:54 AM CDT Temperature 36.4 C (97.6 F) 09/02/2021 1:16 PM COORDINATOR OF EVALUATION Respiratory Rate 16 03/27/2023 12:04 PM CDT Oxygen Saturation 98% 03/24/2025 7:54 AM CDT Inhaled Oxygen Concentration - - Weight 74.2 kg (163 lb 8 oz) 03/24/2025 7:54 AM CDT Height 175 cm (5' 8.9) 03/24/2025 7:54 AM CDT Body Mass Index 24.21 03/24/2025 7:54 AM CDT Plan of Treatment Health Maintenance Due Date Last Done Comments Zoster (shingles) series for age 50+ (1 of 2) 1985 RSV vaccine for adults or (1 - 1-dose 75+ series) 2010 Tetanus booster 02/12/2025 02/12/2015, 10/19, 11/11/1997 COVID-19 vaccine series ( season) 2025 06/23/2024, 08/01/2023, 08/17/2022, Additional history exists Influenza Vaccine (#1) 2025 , 08/01/2023, 08/01/2023, Additional history exists BMI (ht and wt on same day) for age 18+ 03/24/2026 03/24/2025, 06/23/2024, 03/18/2024, Additional history exists Depression screening for age 12+ 03/24/2026 03/24/2025, 03/19/2024, 03/18/2024, Additional history exists Medicare Wellness for age 65+ 03/25/2026, 03/18/2024, 01/18/2023, Additional history exists Hepatitis B series for 19+ Completed 07/12, 12/14/1997, 11/11/1997 Pneumococcal series for age 50+ Completed 5, 01/11/2009 Procedures Procedure Name Priority Date/Time Associated Diagnosis Comments SCAN-OPERATIVE/PROC EDURE REPORT 06/18/2025 12:00 AM CDT from Last 3 Months Results * SCAN-OPERATIVE/PROCEDURE REPORT (06/18/2025 12:00 AM CDT) us Scanner OTHER Final Result from Last 3 Months Insurance [facility] MEDICARE PB ONLY [facility] MEDICARE PART B HB ONLY MEDICARE PB ONLY MEDICARE PART B HB ONLY Member Subscriber Plan / Payer (Ef fective 2000-Present) Name:Shaan Vega Member ID:[id number] Relation to Subscriber:Self Name:Shaan Vega Subscriber ID:[id number] Payer ID:Not on file Group ID:Not on file Type:Not on file Address: ATTN: CLAIMS [address] [place] [id number] [facility] Advance Directives Documents on File Type Date Recorded Patient Attendant Honor Bar Expl anation Healthcare Directive 06/01/2020 020 Care Teams [employer] Relationship Specialty Start Date End Date Alivia Saab DO [address] [place] [address] PCP - General Family Practice 01/18/23 [place] Surgery - Urology 06/25/12 Jorge Alberto Dao MD Urology Surgery - Urology 06/25/12
--- NOTE | 2025-06-27 16:31 | CRLHL7_ITS ---
For Patients: As a result of the Century Cures Act, medical imaging exams and procedure reports are released immediately into your electronic medical record. You may view this report before your referring provider. If you have questions, please contact your health care provider. INDICATION: Fall TECHNIQUE: Two views right ankle FINDINGS/IMPRESSION: Displaced oblique fracture of the distal tibia with 1/2 shaft`s width lateral displacement of the distal tibia. Comminuted angulated displaced distal fibular fracture. Calcaneal spurs soft tissue edema. Dictated by Radha Rnagel MD @ 06/27/2025 6:35:15 PM (Electronically Signed)
[2025-06-27] MEDS: HYDROCODONE-ACETAMIN 5-325 MG 1 TAB PO (17:15)
--- NOTE | 2025-06-27 17:28 | ED.GENADULT ---
HPI - General Adult General Chief complaint: Extremity Pain/Injury, Lower Stated complaint: Right Foot Injury Time Seen by Provider: 06/27/25 16:17 Source: patient Limitations: no limitations History of Present Illness HPI narrative: 89-year-old male presenting today after a fall. States that he was outside when he stepped in a hole and fell backwards. States that when he fell his leg twisted underneath him. He landed on his back, did not hit his head or lose consciousness. He states that he was able to get up and get in his truck to come to the emergency department. He is having a hard time walking. He denies pain in his back. No abdominal pain. No neck pain or headache. No changes in mentation, no confusion. Patient is not anticoagulated. He does live independently. Related Data Home Medications ?Medication ?Instructions ?Recorded ?Confirmed calcium carbonate 500 mg PO DAILY 12/08/23 06/27/25 cholecalciferol (vitamin D3) 50 50 mcg PO DAILY 12/08/23 06/27/25 mcg (2,000 unit) capsule (Vitamin D3) dorzolamide 22.3 mg-timolol 6.8 1 drp ophthalmic (eye) BID 12/08/23 06/27/25 mg/mL eye drops nitroglycerin 0.4 mg sublingual 0.4 mg sublingual Q5-15M PRN 12/08/23 06/27/25 tablet omega 1-zmz-hbb-fish oil 1,000 mg 1 cap PO DAILY 12/08/23 06/27/25 (120 mg-180 mg) capsule (Fish Oil) simvastatin 20 mg tablet 20 mg PO HS 12/08/23 06/27/25 saw [place] 450 mg capsule 450 mg PO TID 12/19/23 06/27/25 aspirin 325 mg tablet,delayed 325 mg PO QDAY 03/27/24 06/27/25 release Allergies Allergy/AdvReac Type Severity Reaction Status Date / Time No Known Drug Allergies Allergy Verified 06/27/25 16:24 Review of Systems Status of ROS: Reports: 10 or more systems reviewed and unremarkable except as noted in History and below [facility] Medical History History of deep vein thrombosis ?Z86.718 - Personal history of other venous thrombosis and embolism (ICD-10) Surgical History S/P hip hemiarthroplasty (12/08/23) ?Z96.649 - Presence of unspecified artificial hip joint (ICD-10) Social History Smoking Status: Never smoker Do you use any of these nicotine containing products: None How often do you have a drink containing alcohol: never How often do you have six or more drinks on one occasion: Never AUDIT-C Alcohol total score: 0 Non-prescribed substance use: denies use Exam Narrative: Exam Narrative: Well-nourished well-developed patient, clearly uncomfortable. Alert and oriented. Answers questions appropriately. Mood and affect are appropriate. Thoughts are goal oriented and rational. No tangential or magical thinking noted. Patient speaks in full sentences without needing to catch his breath. HEENT: Normocephalic atraumatic. Pupils are equally round reactive to light. Extraocular muscles are intact. Conjunctivae are moist without any icterus noted. Moist mucous membranes. No trauma to the inside of the mouth. Neck is soft without any pain. No tenderness to palpation of the chest wall. Abdomen: Soft and nontender nondistended with normal bowel sounds. Back: Normal appearance. No tenderness at the cervical, thoracic or lumbar spine. No pain with movement at the neck including flexion, extension, side way bending and rotation. Extremities: Right lower extremity is swollen just proximal to the ankle and quite tender. There is obvious crepitus present. DP and PT pulses are present. Foot is warm, dry and intact. Skin: Well perfused-no broken skin. Const: Vital Signs, click to edit/add: Vital Signs - 24 hr 06/27/25 16:18 Temperature 98.4 F Pulse Rate [Right Pulse Oximeter] 97 Respiratory Rate 18 Blood Pressure [Ri ght Forearm] 172/86 H Pulse Oximetry 98 Oxygen Delivery Me thod Room Air Course Course ED Course: X-ray of the right ankle shows a tib-fib fracture. Discussed with [facility] orthopedic team, Sue Mcneil, who feels that the patient needs higher level of care according to our orthopedic surgeon. In the meantime patient was given oral tablet of [place] and subsequent IV fentanyl. Patient placed in a posterior splint and a stirrup splint for transfer. Discussed with Dr. Solano at [facility] who accepts the patient for transfer. Vital Signs Vital signs: Initial Vital Signs Temperature 98.4 F 06/27/25 16:18 Temperature Source Temporal Artery Scan 06/27/25 16:18 Pulse Rate 97 06/27/25 16:18 Pulse Rhythm Regular 06/27/25 16:18 Pulse Strength 3+ Normal 06/27/25 16:18 Respiratory Rate 18 06/27/25 16:18 Blood Pressure 172/86 H 06/27/25 16:18 Blood Pressure Mean 114 H 06/27/25 16:18 Blood Pressure Position Sitting 06/27/25 16:18 Pulse Oximetry 98 06/27/25 16:18 Oxygen Delivery Method Room Air 06/27/25 16:18 Vital Signs Temperature 98.4 F 06/27/25 16:18 Pulse Rate 97 06/27/25 16:18 Respiratory Rate 18 06/27/25 16:18 Blood Pressure 172/86 H 06/27/25 16:18 Pulse Oximetry 98 06/27/25 16:18 Oxygen Delivery Method Room Air 06/27/25 16:18 Temperature 98.4 F 06/27/25 16:18 Pulse Rate 97 06/27/25 16:18 Respiratory Rate 18 06/27/25 16:18 Blood Pressure 172/86 H 06/27/25 16:18 Pulse Oximetry 98 06/27/25 16:18 Oxygen Delivery Method Room Air 06/27/25 16:18 Medications Administered Medications: Discontinued Medications Generic Name Dose Route Start Last Admin Trade Name Freq PRN Reason Stop Dose Admin Hydrocodone Bitart/Acetaminophen 1 tab 06/27/25 17:07 06/27/25 17:15 Hydrocodone-Acetamin 5-325 Mg 1 Tab PO 06/27/25 17:08 1 tab ONCE ONE Administration Fentanyl 50 mcg 06/27/25 17:41 06/27/25 18:12 Fentanyl 100 Mcg/2 Ml Inj IVP 06/27/25 17:42 50 mcg ONCE ONE Administration Medical Decision Making MDM Narrative Medical decision making narrative: 89-year-old male with tib-fib fracture. Patient will be transferred to [facility] for further management. Imaging Data Ankle x-ray: Attestation: I have reviewed the pertinent imaging results. Radiologist's impression: TECHNIQUE: Two views right ankle FINDINGS/IMPRESSION: Displaced oblique fracture of the distal tibia with 1/2 shaft`s width lateral displacement of the distal tibia. Comminuted angulated displaced distal fibular fracture. Calcaneal spurs soft tissue edema. Discharge Plan Discharge Clinical Impression: Fracture of tibia and fibula Patient Disposition: Xfer Other Discharge Location: [facility] Condition: Stable Prescriptions: No Action saw palmetto 450 mg capsule 450 mg PO TID Rx Instructions: give with food (meal/snack) aspirin 325 mg tablet,delayed release (DR/EC) 325 mg PO QDAY simvastatin 20 mg tablet 20 mg PO HS dorzolamide-timolol 22.3-6.8 mg/mL drops 1 drp ophthalmic (eye) BID calcium carbonate 500 mg calcium (1,250 mg) tablet 500 mg PO DAILY cholecalciferol (vitamin D3) [Vitamin D3] 50 mcg (2,000 unit) capsule 50 mcg PO DAILY omega 3-aex-ddk-fish oil [Fish Oil] 1,000 mg (120 mg-180 mg) capsule 1 cap PO DAILY nitroglycerin 0.4 mg tablet, sublingual 0.4 mg sublingual Q5-15M PRN Rx Instructions: do not exceed 3 doses per episode Stand Alone Forms: MyHealth Info Instructions
[2025-06-27 19:36] VITALS: BP 141/91; PULSE 82; RESP 18; TEMP 36.8; O2SAT 99
== END 2025-06-27 20:37 | disposition other institution (70) ==
PROVIDERS: Emergency Provider Family Medicine; PCP Student in an Organized Health Care Education/Training Program
DX: S82.231A Displaced oblique fracture of shaft of right tibia, initial encounter for closed fracture (principal); S82.451A Displaced comminuted fracture of shaft of right fibula, initial encounter for closed fracture; X50.1XXA Overexertion from prolonged static or awkward postures, initial encounter
CPT/HCPCS: 29515; 73600; 96374; 99284; A9270; J3010

== ENCOUNTER 2025-06-27 20:05 | Outpatient (CLI) | payer MEDICARE, BC, SELFPAY | END 2025-06-27 20:06 | disposition home or self-care (01) | LOC: AMB 06-30 10:31 | PROVIDERS: PCP Student in an Organized Health Care Education/Training Program; Visit Provider Family Medicine | DX: S82.201A Unspecified fracture of shaft of right tibia, initial encounter for closed fracture (principal) | CPT/HCPCS: A0425; A0433 ==